=== PATIENT | male | born 1980 | race Caucasian/White ===

== ENCOUNTER 2018-01-21 02:34 | Observation (INO) ==
[2018-01-21] MEDS ORDERED: Ipratropium/Albuterol Neb 3 ML IH ONE ×2 (02:48→04:29)
[2018-01-21] MEDS ORDERED: methylPREDNISolone 125 MG/2 ML VIAL IVP ONE (02:48)
[2018-01-21] MEDS ORDERED: MethylPREDNISolone 40 MG/ML VIAL IVP ONE ×2 (02:55→05:49)
--- NOTE | 2018-01-21 03:06 | Emergency Department Note ---
Disposition Clinical Impression: Asthma with exacerbation Qualifiers: Asthma severity: unspecified severity Asthma persistence: unspecified Qualified Code(s): J45.901 - Unspecified asthma with (acute) exacerbation Disposition: Admitted As Inpatient Condition: Good Referrals: NONE,PCP [Primary Care Provider] - Forms: ED Satisfaction Letter Time of Disposition: 06:19 SOB HPI - General Chief Complaint: ED Shortness of Breath/Dyspnea Stated Complaint: RAYMON Time Seen by Provider: 01/21/18 02:42 Source: patient Nursing Notes Reviewed: Yes Vital Signs Reviewed: Yes - History of Present Illness Pt Subjective Complaint: shortness of breath Onset (ago): hour(s) Context: recent illness (last week cold) Severity: moderate Consistency/Duration: gradually worsening Improves with: bronchodilators Worsens with: nothing Known history of: asthma Associated symptoms: Reports: wheezing. Denies: chest pain, pain with inspiration, fever, cough, sputum production, orthopnea, lower extremity pain, diaphoresis, nausea/vomiting Treatment prior to arrival: bronchodilator Cough present: No - Related Data Previous Rx's Medication Instructions Recorded Ipratropium [Atrovent Inhaler] 1 puff IH QID PRN #1 inh 06/12/16 Ipratropium Neb [Atrovent Neb] 0.5 mg IH Q6HR #40 vial.neb 07/09/16 Benzonatate [Tessalon] 100 mg PO TID PRN #14 capsule 08/06/17 Albuterol Neb [Proventil Neb] 2.5 mg IH Q4HR PRN #25 vial.neb 08/23/17 Albuterol Sulfate [Albuterol 2 puff IH Q4HR PRN #1 hfa.aer.ad 08/23/17 Inhaler] Montelukast [Singulair] 10 mg PO DAILY #30 tablet 08/23/17 predniSONE [Prednisone] 50 mg PO DAILY #5 tablet 08/23/17 predniSONE [PredniSONE] 60 mg PO DAILY 5 Days tablet 09/07/17 Albuterol Sulfate [Ventolin Hfa] 18 gm IH Q4H PRN #1 hfa.aer.ad 10/03/17 Allergies Allergy/AdvReac Type Severity Reaction Status Date / Time Penicillins Allergy Hives Verified 07/10/17 14:21 Sulfa (Sulfonamide Allergy Wheezing Verified 07/10/17 14:21 Antibiotics) All systems ED: reviewed and negative except as stated. Review of Systems: As Per HPI Constitutional: Denies: fever, chills, weakness Eyes: Denies: vision change ENT ED: Denies: throat pain Cardiovascular: Denies: chest pain, palpitations Respiratory: Reports: as per HPI, wheezes. Denies: cough, dyspnea Gastrointestinal: Denies: abdominal pain, nausea, vomiting Genitourinary: Denies: dysuria Musculoskeletal: Denies: back pain Integumentary: Denies: rash Neurological: Denies: headache Psychiatric: Denies: anxiety, depression Endocrine: Denies: fatigue Hematological/Lymphatic: Denies: easy bleeding, easy bruising Allergic/Immunologic: Denies: facial swelling Past Medical History - Past Medical History Medical history: Reports: asthma, hypertension Surgical history: Reports: other (History of testicular surgery status post trauma) Psychiatric history: Reports: no psych history - Social History Smoking Status: Never smoker Smokeless Tobacco Status: No Alcohol use: Reports: none Drug use: Reports: none Physical Exam - General Limitations: no limitations General appearance: alert, in no apparent distress - Head Head exam: atraumatic, normocephalic - Eye Eye exam: Present: normal appearance, EOMI. Absent: conjunctival injection - ENT ENT exam: normal exam, normal oropharynx, mucous membranes moist - Neck Neck exam: Present: normal inspection, full ROM - Chest Chest inspection: Present: normal inspection, symmetric chest wall rise - Respiratory Respiratory exam: Present: normal lung sounds bilaterally, wheezes. Absent: respiratory distress, stridor, accessory muscle use - Cardiovascular Cardiovascular exam: Present: regular rate, normal rhythm - Abdominal Exam Abdominal exam: Present: soft, Non-Tender - Extremities Exam Extremities exam: Present: normal inspection, full ROM, normal capillary refill. Absent: pedal edema - Back Exam Back exam: Present: full ROM - Neurological Exam Neurological exam: Present: alert - Psychiatric Psychiatric exam: Present: normal affect, normal mood - Skin Skin exam: Present: warm, dry, intact, normal color. Absent: rash, cyanosis, diaphoresis Course Course Narrative: 37-year-old male with known history of asthma who arrives to exam room by private vehicle from home with complaint of worsening dyspnea. He does mention asthma, has utilized reading treatments at home, and rescue inhalers. Initially it helped but has worsened over the course of the day. He mentions he had a cold last week otherwise denies any recent illness. Denies any allergens, recent exposures, or excessive heat or have the surgery or conditions. Patient mentions he was hospitalized overnight one month ago for asthma exacerbation Trixie. He mentions previous admission in the past as well. Denies any need for intubation. Patient seen and examined. alert does not look toxic. In no acute distress. no cyanosis. No conversational dyspnea. No diaphoresis. Bilateral wheezing. 93% on room air. Steroids, DuoNeb's ordered. Magnesium ordered. Chest x-ray ordered. - Reevaluation(s) Reevaluation #1: Normal EKG. Chest x-ray unremarkable. Patient received Solu-Medrol, and 2 DuoNeb's [id number]. He is in currently running at this point, but patient's IV fluid nursing is currently changing it. Patient does feel some relief. He appears more comfortable. Lungs continued to wheeze. 95% on RA Time: 04:00 Reevaluation #2: Patient appears more comfortable after albuterol, but remains hypoxic when switched room air. Dyspnea worsens with conversation. Patient was discussed with Dr. Martinez who also had face time with patient, and agreed for decision to admit, and also advised for continuous albuterol treatments, but advised no need for epinephrine at this time. Hospitalist paged. Time: 05:48 Reevaluation #3: Patient discussed with hospitalist Dr. Snyder, who agreed to accept patient and also requested normal saline fluids. At this time patient is receiving continuos albuterol by respiratory. It is the end of my shift. I have discussed patient with day shift provider Rachle Davies CNP. Pt has been accepted by hospitalist, and I anticipate patient will be transferred to inpatient bed. However please see her documentation for any additional details, treatments, or changes in patient's plan. Time: 06:18 Vital Signs Temperature 98.1 F 01/21/18 02:36 Pulse Rate 92 01/21/18 02:36 Respiratory Rate 24 01/21/18 02:36 Blood Pressure 186/106 01/21/18 02:36 O2 Sat by Pulse Oximetry 93 01/21/18 02:36 Temperature 98.1 F 01/21/18 02:36 Pulse Rate 73 01/21/18 05:08 Respiratory Rate 20 01/21/18 05:58 Blood Pressure 131/72 01/21/18 05:08 O2 Sat by Pulse Oximetry 93 01/21/18 05:58 Oxygen Delivery Oxygen Delivery Nasal Cannula Shortness of Breath/Dyspnea - MDM Narrative Medical decision making narrative: Patient was discussed with attending Dr. Martinez, who also had face time with patient agreed with workup and disposition.. Chest X-Ray 01/21/18 02:48 IMPRESSION: Limited but grossly negative portable chest. D/ / Nicolás Rivera MD / Nicolás Rivera MD Interpreting Provider: Nicolás Rivera MD Laboratory Tests 01/21/18 01/21/18 03:25 03:25 WBC 8.1 RBC 4.30 Hgb 12.5 L Hct 38.0 MCV 88.4 MCH 29.1 MCHC 32.9 RDW 13.9 Plt Count 224 MPV 10.4 Immature Gran % 0.1 Seg Neutrophils % 68.1 Lymphocytes % 23.3 Monocytes % 4.7 Eosinophils % 3.2 Basophils % 0.6 Neutrophils # 5.5 Lymphocytes # 1.9 Monocytes # 0.4 Eosinophils # 0.3 Basophils # 0.1 Sodium 140 Potassium 3.9 Chloride 107 Carbon Dioxide 27 BUN 17 Creatinine 0.96 Est GFR ( Amer) > 60 Est GFR (Non-Af Amer) > 60 BUN/Creatinine Ratio 18 Glucose 94 Calculated Osmolality 291 Calcium 9.1 - Lab Data Lab results reviewed: Yes I reviewed the patient's lab results. Result diagrams: 01/21/18 03:25 01/21/18 03:25 Lab Results 01/21/18 01/21/18 Range/Units 03:25 03:25 WBC 8.1 (4.3-11.1) K/mcL RBC 4.30 (4.19-5.50) M/mcL Hgb 12.5 L (12.9-16.9) g/dL Hct 38.0 (37.5-50.1) % MCV 88.4 (83.0-100.0) fL MCH 29.1 (28.0-33.3) pg MCHC 32.9 (31.6-35.5) g/dL RDW 13.9 (11.5-14.5) % Plt Count 224 (140-400) K/mcL MPV 10.4 (9.4-12.4) fL Immature Gran % 0.1 (0-4) % Seg Neutrophils % 68.1 % Lymphocytes % 23.3 % Monocytes % 4.7 % Eosinophils % 3.2 % Basophils % 0.6 % Neutrophils # 5.5 (1.6-8.9) K/mcL Lymphocytes # 1.9 (0.6-4.6) K/mcL Monocytes # 0.4 (0.0-1.3) K/mcL Eosinophils # 0.3 (0.0-0.6) K/mcL Basophils # 0.1 (0.0-0.2) K/mcL Sodium 140 (136-145) mEq/L Potassium 3.9 (3.5-5.1) mEq/L Chloride 107 (98-107) mEq/L Carbon Dioxide 27 (23-29) mEq/L BUN 17 (6-20) mg/dL Creatinine 0.96 (0.70-1.30) mg/dL Est GFR ( Amer) > 60 (> 60) Est GFR (Non-Af Amer) > 60 (> 60) BUN/Creatinine Ratio 18 (6-26) Glucose 94 (70-105) mg/dL Calculated Osmolality 291 (280-300) Calcium 9.1 (8.6-10.3) mg/dL - Radiology Data Radiology results reviewed: Yes I reviewed the patient's radiology results. - EKG Data EKG attestation: Yes I reviewed and interpreted this EKG. EKG shows normal: Reports: sinus rhythm Rate: Reports: normal Interpretation: Reports: normal EKG
[2018-01-21] MEDS ORDERED: Albuterol 2.5 MG/3 ML NEBULIZER IH ONE (05:45)
--- NOTE | 2018-01-21 06:00 | Emergency Department Note ---
Disposition Clinical Impression: Asthma with exacerbation Disposition: Admitted As Inpatient Condition: Good General Adult HPI - General Chief complaint: ED Shortness of Breath/Dyspnea Stated complaint: RAYMON Time Seen by Provider: 01/21/18 02:42 Source: patient Limitations: no limitations Nursing Notes Reviewed: Yes Vital Signs Reviewed: Yes - History of Present Illness Pain Scale: 0 - Related Data Previous Rx's Medication Instructions Recorded Ipratropium [Atrovent Inhaler] 1 puff IH QID PRN #1 inh 06/12/16 Ipratropium Neb [Atrovent Neb] 0.5 mg IH Q6HR #40 vial.neb 07/09/16 Benzonatate [Tessalon] 100 mg PO TID PRN #14 capsule 08/06/17 Albuterol Neb [Proventil Neb] 2.5 mg IH Q4HR PRN #25 vial.neb 08/23/17 Albuterol Sulfate [Albuterol 2 puff IH Q4HR PRN #1 hfa.aer.ad 08/23/17 Inhaler] Montelukast [Singulair] 10 mg PO DAILY #30 tablet 08/23/17 predniSONE [Prednisone] 50 mg PO DAILY #5 tablet 08/23/17 predniSONE [PredniSONE] 60 mg PO DAILY 5 Days tablet 09/07/17 Albuterol Sulfate [Ventolin Hfa] 18 gm IH Q4H PRN #1 hfa.aer.ad 10/03/17 Allergies Allergy/AdvReac Type Severity Reaction Status Date / Time Penicillins Allergy Hives Verified 07/10/17 14:21 Sulfa (Sulfonamide Allergy Wheezing Verified 07/10/17 14:21 Antibiotics) Constitutional: Denies: fever, chills, weakness Eyes: Denies: vision change ENT ED: Denies: throat pain Cardiovascular: Denies: chest pain, palpitations Respiratory: Reports: as per HPI, wheezes. Denies: cough, dyspnea Gastrointestinal: Denies: abdominal pain, nausea, vomiting Genitourinary: Denies: dysuria Musculoskeletal: Denies: back pain Integumentary: Denies: rash Neurological: Denies: headache Psychiatric: Denies: anxiety, depression Endocrine: Denies: fatigue Hematological/Lymphatic: Denies: easy bleeding, easy bruising Allergic/Immunologic: Denies: facial swelling Past Medical History - Past Medical History Medical history: Reports: asthma, hypertension Surgical history: Reports: other (History of testicular surgery status post trauma) Psychiatric history: Reports: no psych history - Social History Smoking Status: Never smoker Smokeless Tobacco Status: No Alcohol use: Reports: none Drug use: Reports: none Physical Exam - General Limitations: no limitations General appearance: alert, in no apparent distress Course Vital Signs Temperature 98.1 F 01/21/18 02:36 Pulse Rate 92 01/21/18 02:36 Respiratory Rate 24 01/21/18 02:36 Blood Pressure 186/106 01/21/18 02:36 O2 Sat by Pulse Oximetry 93 01/21/18 02:36 Temperature 98.1 F 01/21/18 02:36 Pulse Rate 73 01/21/18 05:08 Respiratory Rate 20 01/21/18 05:58 Blood Pressure 131/72 01/21/18 05:08 O2 Sat by Pulse Oximetry 93 01/21/18 05:58 Oxygen Delivery Oxygen Delivery Nasal Cannula Medical Decision Making - Lab Data Result diagrams: 01/21/18 03:25 01/21/18 03:25 Lab Results 01/21/18 01/21/18 Range/Units 03:25 03:25 WBC 8.1 (4.3-11.1) K/mcL RBC 4.30 (4.19-5.50) M/mcL Hgb 12.5 L (12.9-16.9) g/dL Hct 38.0 (37.5-50.1) % MCV 88.4 (83.0-100.0) fL MCH 29.1 (28.0-33.3) pg MCHC 32.9 (31.6-35.5) g/dL RDW 13.9 (11.5-14.5) % Plt Count 224 (140-400) K/mcL MPV 10.4 (9.4-12.4) fL Immature Gran % 0.1 (0-4) % Seg Neutrophils % 68.1 % Lymphocytes % 23.3 % Monocytes % 4.7 % Eosinophils % 3.2 % Basophils % 0.6 % Neutrophils # 5.5 (1.6-8.9) K/mcL Lymphocytes # 1.9 (0.6-4.6) K/mcL Monocytes # 0.4 (0.0-1.3) K/mcL Eosinophils # 0.3 (0.0-0.6) K/mcL Basophils # 0.1 (0.0-0.2) K/mcL Sodium 140 (136-145) mEq/L Potassium 3.9 (3.5-5.1) mEq/L Chloride 107 (98-107) mEq/L Carbon Dioxide 27 (23-29) mEq/L BUN 17 (6-20) mg/dL Creatinine 0.96 (0.70-1.30) mg/dL Est GFR ( Amer) > 60 (> 60) Est GFR (Non-Af Amer) > 60 (> 60) BUN/Creatinine Ratio 18 (6-26) Glucose 94 (70-105) mg/dL Calculated Osmolality 291 (280-300) Calcium 9.1 (8.6-10.3) mg/dL Attestation Statement - Attestation Attestation: I, Roshan Martinez MD, personally evaluated this patient and discussed their management with the midlevel provicer, PAC/[employer]PORATE LIBRARIAN. I reviewed the midlevel provider 's note and agree with the documented findings, medical decision making, and plan of care. 37-year-old male with history of asthma presents to the emergency department with a complaint of wheezing and shortness of breath and chest tightness for 1 day prior to arrival. No fever. Some nonproductive cough. Patient uses albuterol nebulizers at home and states that yesterday he used it about every 2 hours with no relief. He is not on home oxygen. He was admitted about a month ago and another facility for similar symptoms. On examination patient is a well-developed obese male in mild respiratory distress. He is alert and oriented 3. There is no cyanosis or diaphoresis. Breath sounds are decreased bilaterally with tight diffuse bilateral inspiratory and expiratory wheezes. Heart regular. Abdomen soft and nontender with normal bowel sounds. No acute abnormality on chest x-ray. Patient received 3 DuoNeb treatments and IV Solu-Medrol. After treatment he felt only minimally better. He continues to have inspiratory and expiratory wheezes and his oxygen saturation drops to 90% while lying on the stretcher at rest when the supplemental oxygen is turned off. An hour-long albuterol treatment ordered and we will consult the hospitalist for admission. The hospitalist, Dr. Snyder, was consulted and accepted admission of the patient.
[2018-01-21 06:07] LABS: Basophils # 0.1 K/mcL (0.0-0.2); Basophils % 0.6 %; Eosinophils # 0.3 K/mcL (0.0-0.6); Eosinophils % 3.2 %; Hemoglobin 12.5 g/dL (12.9-16.9); Immature Granulocytes % 0.1 % (0-4); Lymphocytes # 1.9 K/mcL (0.6-4.6); Lymphocytes % 23.3 %; Mean Corpuscular HGB Conc 32.9 g/dL (31.6-35.5); Mean Corpuscular Hemoglobin 29.1 pg (28.0-33.3); Mean Corpuscular Volume 88.4 fL (83.0-100.0); Mean Platelet Volume 10.4 fL (9.4-12.4); Monocytes # 0.4 K/mcL (0.0-1.3); Monocytes % 4.7 %; Neutrophils # 5.5 K/mcL (1.6-8.9); Platelet Count 224 K/mcL (140-400); Red Cell Distribution Width 13.9 % (11.5-14.5); Segmented Neutrophils % 68.1 %
[2018-01-21 06:17] LABS: BUN/Creatinine Ratio 18 (6-26); Blood Urea Nitrogen 17 mg/dL (6-20); Calcium 9.1 mg/dL (8.6-10.3); Carbon Dioxide 27 mEq/L (23-29); Chloride 107 mEq/L (98-107); Glucose 94 mg/dL (70-105); Osmolality,Calculated 291 (280-300); Potassium 3.9 mEq/L (3.5-5.1); Sodium 140 mEq/L (136-145); eGFR For African Americans > 60 (> 60); eGFR For Non-African Americans > 60 (> 60)
[2018-01-21] MEDS ORDERED: 0.9 % Sodium Chloride 1,000 ML IVC SCH (06:30)
--- NOTE | 2018-01-21 10:35 | Internal Med History&Physical ---
Date of Encounter: 01/21/18 Time of Encounter: 08:00 Internal Medicine - H&P: HPI Chief complaint: Shortness of breath/wheezing Admitted From: Home Plans for Post Hospital Care: Home History of present illness: Patient is a 37-year-old male with past medical history significant for asthma and obesity who presents to the ER on 01/21/18 due to shortness of breath and wheezing. Patient reports of waking up the morning of 01/20/18 with chest tightness, shortness of breath, wheezing and nonproductive cough. Patient decided to go to work but at the end of his shift, his dyspnea on exertion worsened so he decided to come to the ER for evaluation. Of note, he reports of at least 3 admissions for asthma exacerbation in the last year and denies ever being intubated. In the ER, lab work unremarkable and patient with good O2 sats on room air. Patient was given Solu-Medrol, magnesium sulfate and dual nebs in the ER. Patient admitted to the medical surgical floor for asthma exacerbation. Past Med Surg Social Fam HX - Past Medical History Medical history: asthma, hypertension Psychiatric history: no psych history - Past Surgical History Surgical History: other - Social History Smoking Status: Never smoker Smokeless Tobacco Status: No Alcohol use: none Drug use: none - Family History Mother Living Status: Still Living Hx Family Cardiac Disorders: Yes (11 stents, CABG) Hx Family Respiratory Disorders: No Hx Family Cancer: No Hx Family GI Disorders: No Hx Family Endocrine Disorder: Yes (Diabetes) Hx Family Neuromuscular Disorders: No Hx Family Neurologic Disorders: No Hx Family HEENT Disorders: No Hx Family Autoimmune Disorders: No Father Living Status: Hx Family Cardiac Disorders: Yes (Cardiomegaly, stents) Hx Family Respiratory Disorders: Yes (COPD, emphysema) Hx Family Cancer: No Hx Family GI Disorders: No Hx Family Endocrine Disorder: Yes (Diabetes) Hx Family Neuromuscular Disorders: No Hx Family Neurologic Disorders: No Hx Family HEENT Disorders: No Hx Family Autoimmune Disorders: No Internal Medicine - H&P: Meds Montelukast [Singulair] 10 mg PO DAILY #30 tablet 08/23/17 [Rx] Albuterol Sulfate [Ventolin Hfa] 2 puff IH Q4H PRN 01/21/18 [History] Budesonide/Formoterol 80/4.5 [Symbicort 80/4.5] 2 puff IH BIDR 01/21/18 [ History] 3 Allergy/AdvReac Type Severity Reaction Status Date / Time Penicillins Allergy Hives Verified 01/21/18 11:05 Sulfa (Sulfonamide Allergy Wheezing Verified 01/21/18 11:05 Antibiotics) All Systems PM: A 10-system review of systems was performed and is negative for pertinent findings except as documented above in the HPI. - Constitutional Vitals: Temp Pulse Resp BP Pulse Ox 98.0 F 82 18 153/84 93 01/21/18 06:53 01/21/18 06:53 01/21/18 06:53 01/21/18 06:53 01/21/18 06:53 General appearance: Present: A&O X 3, no acute distress - Eye Eye exam: Present: normal appearance - ENT ENT exam: Present: mucous membranes moist - Respiratory Respiratory exam: Present: CTAB. Absent: accessory muscle use, rales, rhonchi, wheezes - Cardiovascular Cardiovascular exam: Present: RRR, +S1, +S2. Absent: diastolic murmur, gallop, rubs, systolic murmur - GI/Abdominal GI/Abdominal exam: Present: normal bowel sounds, soft, no peritoneal signs. Absent: distended, tenderness - Extremities Exam Extremities exam: Absent: pedal edema - Neurological Exam Neurological exam: Present: oriented X3 - Psychiatric Psychiatric exam: Present: normal mood - Skin Skin exam: Present: normal color Internal Med - H&P Results - Labs CBC & Chem 7: 01/21/18 03:25 01/21/18 03:25 - Assessment and plan (1) Asthma with exacerbation Current Visit: Yes Status: Acute Assessment and plan: On examination patient not in any respiratory distress on room air Will continue IV Solu-Medrol and DuoNeb's Qualifiers: Asthma severity: unspecified severity Asthma persistence: unspecified Qualified Code(s): J45.901 - Unspecified asthma with (acute) exacerbation (2) BHARATI (obstructive sleep apnea) Current Visit: No Status: Suspected Assessment and plan: CPAP daily at bedtime (3) Morbid obesity with BMI of 50.0-59.9, adult Current Visit: No Status: Chronic Assessment and plan: BMI 52 (4) DVT prophylaxis Current Visit: No Status: Acute Assessment and plan: Heparin subcutaneous - Time Spent With Patient Total time spent is greater than 50% in coordination of care (as documented) at patient's floor/unit and/or counseling patient:
[2018-01-21] MEDS ORDERED: Naloxone 0.4 MG/ML INJ IVP PRN (11:55)
--- NOTE | 2018-01-21 13:16 | Electrocardiograph Report ---
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
[2018-01-21] MEDS: Ipratropium/Albuterol Neb 3 ML IH SCH ×4 (14:23→23:21)
[2018-01-21] MEDS: methylPREDNISolone 125 MG/2 ML VIAL IVP SCH (15:38)
[2018-01-22] MEDS: methylPREDNISolone 125 MG/2 ML VIAL IVP SCH ×3 (00:08→17:18)
[2018-01-22] MEDS: Ipratropium/Albuterol Neb 3 ML IH SCH ×6 (04:33→23:47)
[2018-01-22 07:14] LABS: Basophils % 0.1 %; Hematocrit 41.8 % (37.5-50.1); Hemoglobin 13.1 g/dL (12.9-16.9); Immature Granulocytes % 0.5 % (0-4); Lymphocytes # 0.7 K/mcL (0.6-4.6); Lymphocytes % 5.1 %; Mean Corpuscular HGB Conc 31.3 g/dL (31.6-35.5); Mean Corpuscular Volume 89.3 fL (83.0-100.0); Mean Platelet Volume 10.2 fL (9.4-12.4); Monocytes # 0.1 K/mcL (0.0-1.3); Monocytes % 0.7 %; Platelet Count 251 K/mcL (140-400); Red Blood Count 4.68 M/mcL (4.19-5.50); Red Cell Distribution Width 13.7 % (11.5-14.5); Segmented Neutrophils % 93.6 %
[2018-01-22 07:16] LABS: Neutrophils # 12.2 K/mcL (1.6-8.9)
[2018-01-22 07:38] LABS: BUN/Creatinine Ratio 21 (6-26); Blood Urea Nitrogen 16 mg/dL (6-20); Calcium 9.5 mg/dL (8.6-10.3); Carbon Dioxide 24 mEq/L (23-29); Chloride 106 mEq/L (98-107); Glucose 160 mg/dL (70-105); Osmolality,Calculated 293 (280-300); Potassium 4.7 mEq/L (3.5-5.1); Sodium 139 mEq/L (136-145); eGFR For African Americans > 60 (> 60); eGFR For Non-African Americans > 60 (> 60)
--- NOTE | 2018-01-22 13:58 | Internal Med Progress Note ---
Date of Encounter: 01/22/18 Time of Encounter: 13:56 - Assessment and plan (1) Asthma with exacerbation Current Visit: Yes Status: Acute Assessment and plan: has known hx of asthma. Symptomatic with worsening shortness of breath and wheezing. Symptoms improving with steroids and bronchodilators. Qualifiers: Asthma severity: unspecified severity Asthma persistence: unspecified Qualified Code(s): J45.901 - Unspecified asthma with (acute) exacerbation (2) Leukocytosis Current Visit: Yes Status: Acute Assessment and plan: WBC 13K. secondary to steroids. Afebrile, no tachycardia or hypotension. Hold on ATB. Qualifiers: Leukocytosis type: bandemia Qualified Code(s): D72.825 - Bandemia (3) Morbid obesity with BMI of 50.0-59.9, adult Current Visit: No Status: Chronic Assessment and plan: BMI 52 (4) BHARATI (obstructive sleep apnea) Current Visit: No Status: Suspected Assessment and plan: CPAP daily at bedtime (5) DVT prophylaxis Current Visit: No Status: Acute Assessment and plan: Heparin - Time Spent With Patient Total time spent is greater than 50% in coordination of care (as documented) at patient's floor/unit and/or counseling patient: - Subjective Interval history: Seen and examined at bedside; patient is new to me. Information obtained fro chart review and patent report. Still with SOB but overall improved. Denies chest pain. He is agreeable to stay overnight for IV steroids - Constitutional Vitals: Temp Pulse Resp BP Pulse Ox 97.7 F 83 16 135/75 96 01/22/18 10:46 01/22/18 10:46 01/22/18 11:08 01/22/18 10:46 01/22/18 11:08 General appearance: Present: A&O X 3, morbidly obese, no acute distress - Head Head exam: Present: atraumatic, normocephalic - Eye Eye exam: Present: PERRL, conjuntiva pink, sclera anicteric Pupils: Present: PERRL - Neck Neck exam general surgery: Present: supple, trachea midline. Absent: lymphadenopathy - Respiratory Respiratory exam: Present: CTAB, wheezes. Absent: accessory muscle use, rales, rhonchi - Cardiovascular Cardiovascular exam: Present: RRR, +S1, +S2. Absent: diastolic murmur, gallop, rubs, systolic murmur - GI/Abdominal GI/Abdominal exam: Present: normal bowel sounds, soft, no peritoneal signs. Absent: distended, tenderness - Extremities Exam Extremities exam: Present: warm, radial pulses palpable and symmetrical. Absent : calf tenderness, cyanotic, pedal edema - Neurological Exam Neurological exam: Present: CN II-XII intact, oriented X3, no focal deficits. Absent: pronater drift, facial droop, speech deficit - Skin Skin exam: Present: dry, intact Internal Medicine: Result - Labs CBC & Chem 7: 01/22/18 06:00 01/22/18 06:00 Labs: Short CBC 01/22/18 Range/Units 06:00 WBC 13.0 H D (4.3-11.1) K/mcL Hgb 13.1 (12.9-16.9) g/dL Hct 41.8 (37.5-50.1) % Plt Count 251 (140-400) K/mcL Neutrophils # 12.2 H (1.6-8.9) K/mcL BMP 01/22/18 06:00 Sodium 139 Potassium 4.7 Chloride 106 Carbon Dioxide 24 BUN 16 Creatinine 0.75 Glucose 160 H Calcium 9.5 Consult Discharge Plan - Plan Referrals: NONE,PCP [Primary Care Provider] -
[2018-01-22 21:21] LABS: Adenovirus Not Detected (Not Detect); Bordetella Pertussis Not Detected (Not Detect); Chlamydophila pneumoniae ***DETECTED*** (Not Detect); Coronavirus 229E Not Detected (Not Detect); Coronavirus HKU1 Not Detected (Not Detect); Coronavirus NL63 Not Detected (Not Detect); Coronavirus OC43 Not Detected (Not Detect); Human Metapneumovirus Not Detected (Not Detect); Human Rhinovirus/Enterovirus Not Detected (Not Detect); Influenza A Subtype 2009 H1 Not Detected (Not Detect); Influenza A Untypeable Not Detected (Not Detect); Influenza B Not Detected (Not Detect); Mycoplasma pneumoniae Not Detected (Not Detect); Parainfluenza Virus 1 Not Detected (Not Detect); Parainfluenza Virus 2 Not Detected (Not Detect); Parainfluenza Virus 3 Not Detected (Not Detect); Parainfluenza Virus 4 Not Detected (Not Detect); Respiratory Syncytial Virus Not Detected (Not Detect)
[2018-01-23] MEDS: methylPREDNISolone 125 MG/2 ML VIAL IVP SCH ×2 (00:12→08:11)
[2018-01-23] MEDS: Ipratropium/Albuterol Neb 3 ML IH SCH ×5 (04:50→20:58)
[2018-01-23 07:14] LABS: Hematocrit 41.4 % (37.5-50.1); Hemoglobin 13.1 g/dL (12.9-16.9); Mean Corpuscular HGB Conc 31.6 g/dL (31.6-35.5); Mean Corpuscular Volume 88.5 fL (83.0-100.0); Platelet Count 270 K/mcL (140-400); Red Blood Count 4.68 M/mcL (4.19-5.50); Red Cell Distribution Width 14.1 % (11.5-14.5)
[2018-01-23 07:32] LABS: BUN/Creatinine Ratio 29 (6-26); Blood Urea Nitrogen 23 mg/dL (6-20); Calcium 9.5 mg/dL (8.6-10.3); Carbon Dioxide 24 mEq/L (23-29); Chloride 110 mEq/L (98-107); Glucose 140 mg/dL (70-105); Osmolality,Calculated 302 (280-300); Potassium 4.9 mEq/L (3.5-5.1); Sodium 143 mEq/L (136-145); eGFR For African Americans > 60 (> 60); eGFR For Non-African Americans > 60 (> 60)
--- NOTE | 2018-01-23 12:41 | Internal Med Progress Note ---
Date of Encounter: 01/23/18 Time of Encounter: 12:39 - Assessment and plan (1) Asthma with exacerbation Current Visit: Yes Status: Acute Assessment and plan: has known hx of asthma. Symptomatic with worsening shortness of breath and wheezing. Urianry antigens negative. Resp PCR with seed pneumonia. Symptoms improving with steroids and bronchodilators. Add azithromycin to cover for possible bacterial component. Qualifiers: Asthma severity: unspecified severity Asthma persistence: unspecified Qualified Code(s): J45.901 - Unspecified asthma with (acute) exacerbation (2) Leukocytosis Current Visit: Yes Status: Acute Assessment and plan: WBC 16K. Afebrile, no tachycardia or hypotension. Suspect secondary to steroids however WBC elevated from the day before. Start azithromycin as noted above. Blood cultures and lactic acid pending. Qualifiers: Leukocytosis type: bandemia Qualified Code(s): D72.825 - Bandemia (3) Morbid obesity with BMI of 50.0-59.9, adult Current Visit: No Status: Chronic Assessment and plan: BMI 52; lifestyle modifications encouraged. (4) BHARATI (obstructive sleep apnea) Current Visit: No Status: Suspected Assessment and plan: CPAP daily at bedtime (5) DVT prophylaxis Current Visit: No Status: Acute Assessment and plan: Heparin - Time Spent With Patient Total time spent is greater than 50% in coordination of care (as documented) at patient's floor/unit and/or counseling patient: - Subjective Interval history: Seen and examined at bedside; says he feels better today but still having some shortness of breath. Does not feel he is getting as when it is yesterday. Still has nonproductive cough. Has a little wheezing. No chest pain. - Constitutional Vitals: Temp Pulse Resp BP Pulse Ox 98.1 F 87 14 130/67 92 01/23/18 11:37 01/23/18 11:37 01/23/18 11:37 01/23/18 11:37 01/23/18 11:37 General appearance: Present: A&O X 3, morbidly obese, no acute distress - Head Head exam: Present: atraumatic, normocephalic - Eye Eye exam: Present: PERRL, conjuntiva pink, sclera anicteric Pupils: Present: PERRL - Neck Neck exam general surgery: Present: supple, trachea midline. Absent: lymphadenopathy - Respiratory Respiratory exam: Present: CTAB, wheezes (Mild, scattered wheezing.). Absent: accessory muscle use, rales, rhonchi - Cardiovascular Cardiovascular exam: Present: RRR, +S1, +S2. Absent: diastolic murmur, gallop, rubs, systolic murmur - GI/Abdominal GI/Abdominal exam: Present: normal bowel sounds, soft, no peritoneal signs. Absent: distended, tenderness - Extremities Exam Extremities exam: Present: warm, radial pulses palpable and symmetrical. Absent : calf tenderness, cyanotic, pedal edema - Neurological Exam Neurological exam: Present: CN II-XII intact, oriented X3, no focal deficits. Absent: pronater drift, facial droop, speech deficit - Skin Skin exam: Present: dry, intact Internal Medicine: Result - Labs CBC & Chem 7: 01/23/18 06:44 01/23/18 06:44 Labs: Short CBC 01/23/18 Range/Units 06:44 WBC 16.1 H (4.3-11.1) K/mcL Hgb 13.1 (12.9-16.9) g/dL Hct 41.4 (37.5-50.1) % Plt Count 270 (140-400) K/mcL BMP 01/23/18 06:44 Sodium 143 Potassium 4.9 Chloride 110 H Carbon Dioxide 24 BUN 23 H Creatinine 0.78 Glucose 140 H Calcium 9.5 - Impressions Impressions Chest CT 01/22/18 14:04 IMPRESSION: 1. No acute abnormality within the chest. D/ / Rajiv Kincaid MD / Rajiv Kincaid MD Interpreting Provider: Rajiv Kincaid MD Consult Discharge Plan - Plan Referrals: NONE,PCP [Primary Care Provider] -
[2018-01-23] MEDS: Azithromycin 500 MG in D5% in Water 250 ML IVPB SCH (13:12)
[2018-01-24] MEDS: Ipratropium/Albuterol Neb 3 ML IH SCH ×3 (00:53→07:55)
[2018-01-24 05:01] LABS: BUN/Creatinine Ratio 34 (6-26); Blood Urea Nitrogen 29 mg/dL (6-20); Calcium 8.8 mg/dL (8.6-10.3); Carbon Dioxide 25 mEq/L (23-29); Chloride 106 mEq/L (98-107); Glucose 108 mg/dL (70-105); Osmolality,Calculated 290 (280-300); Potassium 4.4 mEq/L (3.5-5.1); Sodium 137 mEq/L (136-145); eGFR For African Americans > 60 (> 60); eGFR For Non-African Americans > 60 (> 60)
[2018-01-24 06:39] VITALS: BP 101/64
[2018-01-24 07:53] LABS: Hematocrit 39.3 % (37.5-50.1); Hemoglobin 12.5 g/dL (12.9-16.9); Mean Corpuscular HGB Conc 31.8 g/dL (31.6-35.5); Mean Corpuscular Hemoglobin 28.2 pg (28.0-33.3); Mean Corpuscular Volume 88.5 fL (83.0-100.0); Mean Platelet Volume 10.7 fL (9.4-12.4); Platelet Count 218 K/mcL (140-400); Red Blood Count 4.44 M/mcL (4.19-5.50)
[2018-01-24] MEDS ORDERED: predniSONE 20 MG TABLET PO SCH (09:00)
--- NOTE | 2018-01-24 10:03 | Discharge Summary ---
Orders not resulted at time of discharge: Pending orders 01/23/18 12:56 Culture,Blood [BC] Stat 01/25/18 04:00 BMP [Basic Metabolic Panel] AM 0400 Complete Blood Count w/o Diff [HEME] AM 0400 01/26/18 04:00 BMP [Basic Metabolic Panel] AM 0400 Complete Blood Count w/o Diff [HEME] AM 0400 01/27/18 04:00 BMP [Basic Metabolic Panel] AM 0400 Complete Blood Count w/o Diff [HEME] AM 0400 Date of Encounter: 01/24/18 Time of Encounter: 10:03 - Discharge Diagnosis (1) Asthma with exacerbation Priority: Primary Status: Acute Assessment and Plan: has known hx of asthma. Symptomatic with worsening shortness of breath and wheezing. CXR and chest CT nonacute. Urianry antigens negative. Resp PCR with chlamydophila pneumoniae. Symptoms significantly improved with IV azithromycin, steroids and bronchodilators. Discharge home on oral azithromycin, steroid burst. Continue home inhalers. Recommend follow-up with PCP within 7-10 days and also recommend establishing care with [facility] web developer. Qualifiers: Asthma severity: unspecified severity Asthma persistence: unspecified Qualified Code(s): J45.901 - Unspecified asthma with (acute) exacerbation (2) Leukocytosis Priority: Primary Status: Acute Assessment and Plan: WBC 16K. Afebrile, no tachycardia or hypotension. Suspect multifactorial with asthma exacerbation and steroid-induced. WBC 11 K at discharge. 01/23/18 blood cultures NGTD Qualifiers: Leukocytosis type: bandemia Qualified Code(s): D72.825 - Bandemia (3) Morbid obesity with BMI of 50.0-59.9, adult Priority: Secondary Status: Chronic Assessment and Plan: BMI 52; lifestyle modifications/weight loss encouraged. (4) BHARATI (obstructive sleep apnea) Priority: Secondary Status: Suspected Assessment and Plan: per hx. Cont CPAP. Lifestyle modifications/weight loss encouraged Hospital course: Please see assessment and plan for hospital course Discharge discussed with: patient (Seen and examined at bedside. Patient says he feels significantly better and would like to discharge home today. Has a dry , nonproductive cough at times and shortness of breath with exertion but overall improved. No wheezing. Denied chest pain. Strongly encourage dietary and lifestyle modifications to encourage weight loss. Also recommend follow-up with PCP within 7-10 days and establishing care with [facility] web developer.) - Time Spent with Patient Total time spent providing and/or coordinating discharge services: - Discharge Medications Prescriptions: Azithromycin 250 mg PO DAILY #3 tablet Budesonide/Formoterol 80/4.5 [Symbicort 80/4.5] 2 puff IH BIDR #1 inhaler predniSONE [PredniSONE] 40 mg PO DAILY #8 tablet Home Medications: Montelukast [Singulair] 10 mg PO DAILY #30 tablet 08/23/17 [Rx] Albuterol Sulfate [Ventolin Hfa] 2 puff IH Q4H PRN 01/21/18 [History] Azithromycin 250 mg PO DAILY #3 tablet 01/24/18 [Rx] Budesonide/Formoterol 80/4.5 [Symbicort 80/4.5] 2 puff IH BIDR #1 inhaler 01/24 [Rx] predniSONE [PredniSONE] 40 mg PO DAILY #8 tablet 01/24/18 [Rx] Allergies/Adverse Reactions: 3 Allergy/AdvReac Type Severity Reaction Status Date / Time Penicillins Allergy Hives Verified 01/21/18 11:05 Sulfa (Sulfonamide Allergy Wheezing Verified 01/21/18 11:05 Antibiotics) Date of admission: 01/21/18 06:21 Primary care physician: PCP NONE Consults: 01/22/18 08:30 Consult to [facility] [CONS] Routine Reason for SW Consult: Questions about financial assistance for prescriptions. Discharging clinician: Felicita Aaron Anticipated date of discharge: 01/24/18 - Constitutional Vitals: Temp Pulse Resp BP Pulse Ox 98.1 F 73 14 101/64 97 01/24/18 06:38 01/24/18 06:38 01/24/18 06:38 01/24/18 06:38 01/24/18 06:38 General appearance: Present: A&O X 3, morbidly obese, no acute distress - Head Head exam: Present: atraumatic, normocephalic - Eye Eye exam: Present: PERRL, conjuntiva pink, sclera anicteric Pupils: Present: PERRL - Neck Neck exam general surgery: Present: supple, trachea midline. Absent: lymphadenopathy - Respiratory Respiratory exam: Present: CTAB. Absent: accessory muscle use, rales, rhonchi, wheezes - Cardiovascular Cardiovascular exam: Present: RRR, +S1, +S2. Absent: diastolic murmur, gallop, rubs, systolic murmur - GI/Abdominal GI/Abdominal exam: Present: normal bowel sounds, soft, no peritoneal signs. Absent: distended, tenderness - Extremities Exam Extremities exam: Present: warm, radial pulses palpable and symmetrical. Absent : calf tenderness, cyanotic, pedal edema - Neurological Exam Neurological exam: Present: CN II-XII intact, oriented X3, no focal deficits. Absent: pronater drift, facial droop, speech deficit - Skin Skin exam: Present: dry, intact - Patient Status Disposition: Home, Self-Care Condition: Good Functional capacity at discharge: independent ambulation Overall status at discharge: patient is back to baseline - Discharge Instructions Instructions: Azithromycin (By mouth), Prednisone (By mouth), Sleep Apnea Syndrome (DC), Weight Management (DC) Follow Up With: NONE,PCP [Primary Care Provider] - (Please call [phone] to establish care with a primary care physician if you do not have one. If you have a primary care physician please follow-up within 7-10 days. It is recommended that he establish care with [facility] web developer and you may need referral from your PCP.) Dom Rodríguez MD [Partnered Physician] - - Diet and Activity Activity: increase activity as tolerated Diet: low fat, low cholesterol
[2018-01-24] MEDS: Azithromycin 500 MG in D5% in Water 250 ML IVPB SCH (10:24)
[2018-01-24] MEDS ORDERED: Azithromycin 250 MG TABLET PO ONE (11:01)
== END 2018-01-24 11:20 | disposition home or self-care (01) ==
LOC: 3BNU 02:34 → EMEROO 02:34 → 3BNU 06:40
PROVIDERS: ADMIT Hospitalist; ATTEND Pediatrics

== ENCOUNTER 2019-04-05 00:09 | Observation (INO) ==
[2019-04-05] MEDS ORDERED: methylPREDNISolone 125 MG/2 ML VIAL IVP ONE (00:24)
[2019-04-05] MEDS ORDERED: Ipratropium/Albuterol Neb 3 ML IH ONE (00:24)
[2019-04-05 01:00] LABS: Basophils # 0.1 K/mcL (0.0-0.2); Basophils % 0.6 %; Eosinophils # 0.3 K/mcL (0.0-0.6); Eosinophils % 3.6 %; Hematocrit 37.4 % (37.5-50.1); Hemoglobin 11.9 g/dL (12.9-16.9); Immature Granulocytes % 0.1 % (0-4); Lymphocytes # 1.1 K/mcL (0.6-4.6); Lymphocytes % 14.6 %; Mean Corpuscular HGB Conc 31.8 g/dL (31.6-35.5); Mean Corpuscular Hemoglobin 28.1 pg (28.0-33.3); Mean Corpuscular Volume 88.2 fL (83.0-100.0); Mean Platelet Volume 9.5 fL (9.4-12.4); Monocytes # 0.4 K/mcL (0.0-1.3); Neutrophils # 5.9 K/mcL (1.6-8.9); Platelet Count 195 K/mcL (140-400); Red Blood Count 4.24 M/mcL (4.19-5.50); Red Cell Distribution Width 14.7 % (11.5-14.5); Segmented Neutrophils % 76.1 %; White Blood Count 7.8 K/mcL (4.3-11.1)
[2019-04-05 01:15] LABS: BUN/Creatinine Ratio 16 (6-26); Blood Urea Nitrogen 19 mg/dL (6-20); Carbon Dioxide 29 mEq/L (23-29); Chloride 102 mEq/L (98-107); Glucose 99 mg/dL (70-105); Osmolality,Calculated 288 (280-300); Sodium 138 mEq/L (136-145); eGFR For African Americans > 60 (> 60); eGFR For Non-African Americans > 60 (> 60)
[2019-04-05] MEDS ORDERED: Levalbuterol Neb 1.25 MG/3 ML IH STA (01:52)
--- NOTE | 2019-04-05 01:57 | Emergency Department Note ---
Disposition Clinical Impression: Asthma with exacerbation Qualifiers: Asthma severity: moderate Asthma persistence: unspecified Qualified Code(s): J45.901 - Unspecified asthma with (acute) exacerbation Disposition: Admitted As Inpatient Referrals: NONE,PCP [Primary Care Provider] - Forms: ED Satisfaction Letter Time of Disposition: 03:45 SOB HPI - General Chief Complaint: ED Shortness of Breath/Dyspnea Stated Complaint: [place] Time Seen by Provider: 04/05/19 00:16 Source: patient Mode of arrival: private vehicle Limitations: no limitations Nursing Notes Reviewed: Yes Vital Signs Reviewed: Yes - History of Present Illness 39-year-old male presents emergency department for shortness of breath. Patient states he is asthmatic and today in the afternoon he had onset shortness of breath. He uses home doing nebs, inhalers, Symbicort. He does state he uses rescue inherits prior to arrival. He states that 6 weeks ago he had pneumonia, is on antibiotics in a steroid burst and which he recovered for about a week and then he is now having difficulty breathing. He states positive wheezing. No fevers, chills, chest pain, bowel pain, nausea, vomiting, station, diarrhea. Pt Subjective Complaint: "asthma attack" Onset (ago): hour(s) Context: recent illness Severity: moderate, severe Consistency/Duration: constant Improves with: bronchodilators, upright position Worsens with: exertion, movement Known history of: asthma Associated symptoms: Reports: wheezing. Denies: chest pain, pain with inspiration, fever, cough, sputum production, orthopnea, lower extremity pain, polyuria, polydipsia, parasthesias, palpitations, hemoptysis, diaphoresis, nausea/vomiting, syncope, abdominal pain, rash, sense of impending doom Treatment prior to arrival: bronchodilator Cough present: No - Related Data Home oxygen amount: none Home Medications Medication Instructions Recorded Confirmed Albuterol Sulfate [Ventolin Hfa] 2 puff IH Q4H PRN 01/21/18 04/05/19 Previous Rx's Medication Instructions Recorded Albuterol Neb [Proventil Neb] 2.5 mg IH Q4HR PRN #25 vial.neb 06/27/18 Budesonide/Formoterol 160/4.5 1 puff IH BIDR #1 hfa.[email or web address] 01/23/19 [Symbicort 160/4.5] Ipratropium/Albuterol Neb [Duoneb] 3 ml IH Q6HR PRN #25 vial.neb 01/23/19 Ipratropium/Albuterol Neb [Duoneb] 3 ml IH Q6HR PRN #25 vial.neb 02/19/19 Montelukast [Singulair] 10 mg PO DAILY #14 tablet 02/19/19 Allergies Allergy/AdvReac Type Severity Reaction Status Date / Time Penicillins Allergy Hives Verified 04/05/19 00:20 Sulfa (Sulfonamide Allergy Wheezing Verified 04/05/19 00:20 Antibiotics) All systems ED: reviewed and negative except as stated. Review of Systems: As Per HPI Constitutional: Denies: fever, chills ENT ED: Denies: ear pain, throat pain Cardiovascular: Denies: chest pain, palpitations Respiratory: Reports: wheezes. Denies: cough, hemoptysis, stridor Gastrointestinal: Denies: abdominal pain, nausea, vomiting, diarrhea Musculoskeletal: Denies: back pain, neck pain Integumentary: Denies: rash Neurological: Denies: headache Past Medical History - Past Medical History Attestation: Yes The following information was validated with the patient. Source: patient Medical history: Reports: asthma, hypertension Surgical history: Reports: other (Testicular surgery from injury) Psychiatric history: Reports: no psych history - Social History Smoking Status: Never smoker Smokeless Tobacco Status: No Alcohol use: Reports: none Drug use: Reports: none Physical Exam - General Limitations: no limitations General appearance: alert, in no apparent distress - Head Head exam: atraumatic, normocephalic, normal inspection - Eye Eye exam: Present: normal appearance - ENT ENT exam: mucous membranes moist - Neck Neck exam: Present: normal inspection, full ROM, trachea midline - Chest Chest inspection: Present: normal inspection, symmetric chest wall rise - Respiratory Respiratory exam: Present: wheezes. Absent: respiratory distress, accessory mu scle use, prolonged expiratory phase - Cardiovascular Cardiovascular exam: Present: regular rate, normal rhythm, normal heart sounds - Abdominal Exam Abdominal exam: Present: soft, Non-Tender. Absent: tenderness, distention, guarding, rebound, rigidity - Extremities Exam Extremities exam: Present: normal inspection, full ROM. Absent: tenderness, pedal edema - Neurological Exam Neurological exam: Present: alert, oriented X3 - Psychiatric Psychiatric exam: Present: normal affect, normal mood - Skin Skin exam: Present: warm, dry, intact, normal color Course Course Narrative: Obese male in no acute distress. Respirations are easy and even, there is no retractions. He does speak in full sentences without conversational dyspnea. He is noted to be slightly tachypneic upon arrival with respiratory 24, he does have audible wheezing. Temperature slightly elevated at 99.8, slightly tachycardic with a heart rate 106. He is normotensive. EKG completed upon arrival reveals a sinus tachycardia at a rate of 106 bpm. NH interval 136 ms, QTC 423 ms, there is no evidence of ischemic morphology or ectopy. Doonan's and consignment were given with patient verbalization of easy respirations, nontachypneic at this time. 0200-chest x-ray returns unremarkable, labs are benign, d-dimer 357. Patient does still continue to have wheezing, he is not hypoxic and is oxygenating well with sitting still. He does state he feels better. We will give a dose of Xopenex, continue to monitor. 0300-patient continues to rest comfortably. He is not hypoxic while sitting in bed. Patient was up ambulating unit, noted with hypoxia and patient describes shortness of breath. Patient 86-88% on room air while ambulating, becomes tachycardic at 120 bpm when ambulating. At the [facility] do feel patient would be most benefited from admission to the hospital for asthma exacerbation. He is agreeable with this plan of care and states he is unsure if he be able to take care of himself at home. We will give magnesium. 0344-spell with hospitalist Dr. Snyder, agreeable for admission to the hospital. We will transition care at this time. Vital Signs Temperature 99.8 F H 04/05/19 00:15 Pulse Rate 104 04/05/19 00:15 Respiratory Rate 24 04/05/19 00:15 Blood Pressure 137/97 04/05/19 00:15 O2 Sat by Pulse Oximetry 93 04/05/19 00:15 Temperature 99.8 F H 04/05/19 00:15 Pulse Rate 123 04/05/19 03:20 Respiratory Rate 26 04/05/19 03:20 Blood Pressure 166/94 04/05/19 03:00 O2 Sat by Pulse Oximetry 92 04/05/19 03:00 Oxygen Delivery Oxygen Delivery Room Air Shortness of Breath/Dyspnea - Lab Data Result diagrams: 04/05/19 00:43 04/05/19 00:43 Lab Results 04/05/19 04/05/19 04/05/19 Range/Units 00:43 00:43 00:43 WBC 7.8 (4.3-11.1) K/mcL RBC 4.24 (4.19-5.50) M/mcL Hgb 11.9 L (12.9-16.9) g/dL Hct 37.4 L (37.5-50.1) % MCV 88.2 (83.0-100.0) fL MCH 28.1 (28.0-33.3) pg MCHC 31.8 (31.6-35.5) g/dL RDW 14.7 H (11.5-14.5) % Plt Count 195 (140-400) K/mcL MPV 9.5 (9.4-12.4) fL Immature Gran % 0.1 (0-4) % Seg Neutrophils % 76.1 % Lymphocytes % 14.6 % Monocytes % 5.0 % Eosinophils % 3.6 % Basophils % 0.6 % Neutrophils # 5.9 (1.6-8.9) K/mcL Lymphocytes # 1.1 (0.6-4.6) K/mcL Monocytes # 0.4 (0.0-1.3) K/mcL Eosinophils # 0.3 (0.0-0.6) K/mcL Basophils # 0.1 (0.0-0.2) K/mcL D-Dimer 357 (0-500) ng/mLFEU Sodium 138 (136-145) mEq/L Potassium 4.0 (3.5-5.1) mEq/L Chloride 102 (98-107) mEq/L Carbon Dioxide 29 (23-29) mEq/L BUN 19 (6-20) mg/dL Creatinine 1.20 (0.70-1.30) mg/dL Est GFR ( Amer) > 60 (> 60) Est GFR (Non-Af Amer) > 60 (> 60) BUN/Creatinine Ratio 16 (6-26) Glucose 99 (70-105) mg/dL Calculated Osmolality 288 (280-300) Lactic Acid (0.5-2.2) mmol/L Calcium 9.0 (8.6-10.3) mg/dL Magnesium 2.0 (1.6-2.6) mg/dL Troponin I (< 0.04) ng/mL B-Natriuretic Peptide (Less than 100) pg/mL 04/05/19 04/05/19 04/05/19 Range/Units 00:43 00:43 00:43 WBC (4.3-11.1) K/mcL RBC (4.19-5.50) M/mcL Hgb (12.9-16.9) g/dL Hct (37.5-50.1) % MCV (83.0-100.0) fL MCH (28.0-33.3) pg MCHC (31.6-35.5) g/dL RDW (11.5-14.5) % Plt Count (140-400) K/mcL MPV (9.4-12.4) fL Immature Gran % (0-4) % Seg Neutrophils % % Lymphocytes % % Monocytes % % Eosinophils % % Basophils % % Neutrophils # (1.6-8.9) K/mcL Lymphocytes # (0.6-4.6) K/mcL Monocytes # (0.0-1.3) K/mcL Eosinophils # (0.0-0.6) K/mcL Basophils # (0.0-0.2) K/mcL D-Dimer (0-500) ng/mLFEU Sodium (136-145) mEq/L Potassium (3.5-5.1) mEq/L Chloride (98-107) mEq/L Carbon Dioxide (23-29) mEq/L BUN (6-20) mg/dL Creatinine (0.70-1.30) mg/dL Est GFR ( Amer) (> 60) Est GFR (Non-Af Amer) (> 60) BUN/Creatinine Ratio (6-26) Glucose (70-105) mg/dL Calculated Osmolality (280-300) Lactic Acid 1.1 (0.5-2.2) mmol/L Calcium (8.6-10.3) mg/dL Magnesium (1.6-2.6) mg/dL Troponin I < 0.03 (< 0.04) ng/mL B-Natriuretic Peptide 14 (Less than 100) pg/mL 04/05/19 Range/Units 02:26 WBC (4.3-11.1) K/mcL RBC (4.19-5.50) M/mcL Hgb (12.9-16.9) g/dL Hct (37.5-50.1) % MCV (83.0-100.0) fL MCH (28.0-33.3) pg MCHC (31.6-35.5) g/dL RDW (11.5-14.5) % Plt Count (140-400) K/mcL MPV (9.4-12.4) fL Immature Gran % (0-4) % Seg Neutrophils % % Lymphocytes % % Monocytes % % Eosinophils % % Basophils % % Neutrophils # (1.6-8.9) K/mcL Lymphocytes # (0.6-4.6) K/mcL Monocytes # (0.0-1.3) K/mcL Eosinophils # (0.0-0.6) K/mcL Basophils # (0.0-0.2) K/mcL D-Dimer (0-500) ng/mLFEU Sodium (136-145) mEq/L Potassium (3.5-5.1) mEq/L Chloride (98-107) mEq/L Carbon Dioxide (23-29) mEq/L BUN (6-20) mg/dL Creatinine (0.70-1.30) mg/dL Est GFR ( Amer) (> 60) Est GFR (Non-Af Amer) (> 60) BUN/Creatinine Ratio (6-26) Glucose (70-105) mg/dL Calculated Osmolality (280-300) Lactic Acid 1.0 (0.5-2.2) mmol/L Calcium (8.6-10.3) mg/dL Magnesium (1.6-2.6) mg/dL Troponin I (< 0.04) ng/mL B-Natriuretic Peptide (Less than 100) pg/mL
--- NOTE | 2019-04-05 03:35 | Emergency Department Note ---
Disposition Clinical Impression: Asthma with exacerbation Qualifiers: Asthma severity: moderate Asthma persistence: unspecified Qualified Code(s): J45.901 - Unspecified asthma with (acute) exacerbation Disposition: Admitted As Inpatient Condition: Fair Time of Disposition: 03:45 General Adult HPI - General Chief complaint: ED Shortness of Breath/Dyspnea Stated complaint: [place] Time Seen by Provider: 04/05/19 00:16 Source: patient Mode of arrival: private vehicle Limitations: no limitations - History of Present Illness Pain Scale: 0 - Related Data Home Medications Medication Instructions Recorded Confirmed Albuterol Sulfate [Ventolin Hfa] 2 puff IH Q4H PRN 01/21/18 04/05/19 Previous Rx's Medication Instructions Recorded Albuterol Neb [Proventil Neb] 2.5 mg IH Q4HR PRN #25 vial.neb 06/27/18 Budesonide/Formoterol 160/4.5 1 puff IH BIDR #1 hfa.aer.ad 01/23/19 [Symbicort 160/4.5] Ipratropium/Albuterol Neb [Duoneb] 3 ml IH Q6HR PRN #25 vial.neb 01/23/19 Ipratropium/Albuterol Neb [Duoneb] 3 ml IH Q6HR PRN #25 vial.neb 02/19/19 Montelukast [Singulair] 10 mg PO DAILY #14 tablet 02/19/19 Allergies Allergy/AdvReac Type Severity Reaction Status Date / Time Penicillins Allergy Hives Verified 04/05/19 00:20 Sulfa (Sulfonamide Allergy Wheezing Verified 04/05/19 00:20 Antibiotics) Constitutional: Denies: fever, chills ENT ED: Denies: ear pain, throat pain Cardiovascular: Denies: chest pain, palpitations Respiratory: Reports: wheezes. Denies: cough, hemoptysis, stridor Gastrointestinal: Denies: abdominal pain, nausea, vomiting, diarrhea Musculoskeletal: Denies: back pain, neck pain Integumentary: Denies: rash Neurological: Denies: headache Past Medical History - Past Medical History Medical history: Reports: asthma, hypertension Surgical history: Reports: other (Testicular surgery from injury) Psychiatric history: Reports: no psych history - Social History Smoking Status: Never smoker Smokeless Tobacco Status: No Alcohol use: Reports: none Drug use: Reports: none Physical Exam - General Limitations: no limitations General appearance: alert, in no apparent distress Course Vital Signs Temperature 99.8 F H 04/05/19 00:15 Pulse Rate 104 04/05/19 00:15 Respiratory Rate 24 04/05/19 00:15 Blood Pressure 137/97 04/05/19 00:15 O2 Sat by Pulse Oximetry 93 04/05/19 00:15 Temperature 99.8 F H 04/05/19 00:15 Pulse Rate 123 04/05/19 03:20 Respiratory Rate 26 04/05/19 03:20 Blood Pressure 166/94 04/05/19 03:00 O2 Sat by Pulse Oximetry 92 04/05/19 03:00 Oxygen Delivery Oxygen Delivery Room Air Medical Decision Making - Lab Data Result diagrams: 04/05/19 00:43 04/05/19 00:43 Lab Results 04/05/19 04/05/19 04/05/19 Range/Units 00:43 00:43 00:43 WBC 7.8 (4.3-11.1) K/mcL RBC 4.24 (4.19-5.50) M/mcL Hgb 11.9 L (12.9-16.9) g/dL Hct 37.4 L (37.5-50.1) % MCV 88.2 (83.0-100.0) fL MCH 28.1 (28.0-33.3) pg MCHC 31.8 (31.6-35.5) g/dL RDW 14.7 H (11.5-14.5) % Plt Count 195 (140-400) K/mcL MPV 9.5 (9.4-12.4) fL Immature Gran % 0.1 (0-4) % Seg Neutrophils % 76.1 % Lymphocytes % 14.6 % Monocytes % 5.0 % Eosinophils % 3.6 % Basophils % 0.6 % Neutrophils # 5.9 (1.6-8.9) K/mcL Lymphocytes # 1.1 (0.6-4.6) K/mcL Monocytes # 0.4 (0.0-1.3) K/mcL Eosinophils # 0.3 (0.0-0.6) K/mcL Basophils # 0.1 (0.0-0.2) K/mcL D-Dimer 357 (0-500) ng/mLFEU Sodium 138 (136-145) mEq/L Potassium 4.0 (3.5-5.1) mEq/L Chloride 102 (98-107) mEq/L Carbon Dioxide 29 (23-29) mEq/L BUN 19 (6-20) mg/dL Creatinine 1.20 (0.70-1.30) mg/dL Est GFR ( Amer) > 60 (> 60) Est GFR (Non-Af Amer) > 60 (> 60) BUN/Creatinine Ratio 16 (6-26) Glucose 99 (70-105) mg/dL Calculated Osmolality 288 (280-300) Lactic Acid (0.5-2.2) mmol/L Calcium 9.0 (8.6-10.3) mg/dL Magnesium 2.0 (1.6-2.6) mg/dL Troponin I (< 0.04) ng/mL B-Natriuretic Peptide (Less than 100) pg/mL 04/05/19 04/05/19 04/05/19 Range/Units 00:43 00:43 00:43 WBC (4.3-11.1) K/mcL RBC (4.19-5.50) M/mcL Hgb (12.9-16.9) g/dL Hct (37.5-50.1) % MCV (83.0-100.0) fL MCH (28.0-33.3) pg MCHC (31.6-35.5) g/dL RDW (11.5-14.5) % Plt Count (140-400) K/mcL MPV (9.4-12.4) fL Immature Gran % (0-4) % Seg Neutrophils % % Lymphocytes % % Monocytes % % Eosinophils % % Basophils % % Neutrophils # (1.6-8.9) K/mcL Lymphocytes # (0.6-4.6) K/mcL Monocytes # (0.0-1.3) K/mcL Eosinophils # (0.0-0.6) K/mcL Basophils # (0.0-0.2) K/mcL D-Dimer (0-500) ng/mLFEU Sodium (136-145) mEq/L Potassium (3.5-5.1) mEq/L Chloride (98-107) mEq/L Carbon Dioxide (23-29) mEq/L BUN (6-20) mg/dL Creatinine (0.70-1.30) mg/dL Est GFR ( Amer) (> 60) Est GFR (Non-Af Amer) (> 60) BUN/Creatinine Ratio (6-26) Glucose (70-105) mg/dL Calculated Osmolality (280-300) Lactic Acid 1.1 (0.5-2.2) mmol/L Calcium (8.6-10.3) mg/dL Magnesium (1.6-2.6) mg/dL Troponin I < 0.03 (< 0.04) ng/mL B-Natriuretic Peptide 14 (Less than 100) pg/mL 04/05/19 Range/Units 02:26 WBC (4.3-11.1) K/mcL RBC (4.19-5.50) M/mcL Hgb (12.9-16.9) g/dL Hct (37.5-50.1) % MCV (83.0-100.0) fL MCH (28.0-33.3) pg MCHC (31.6-35.5) g/dL RDW (11.5-14.5) % Plt Count (140-400) K/mcL MPV (9.4-12.4) fL Immature Gran % (0-4) % Seg Neutrophils % % Lymphocytes % % Monocytes % % Eosinophils % % Basophils % % Neutrophils # (1.6-8.9) K/mcL Lymphocytes # (0.6-4.6) K/mcL Monocytes # (0.0-1.3) K/mcL Eosinophils # (0.0-0.6) K/mcL Basophils # (0.0-0.2) K/mcL D-Dimer (0-500) ng/mLFEU Sodium (136-145) mEq/L Potassium (3.5-5.1) mEq/L Chloride (98-107) mEq/L Carbon Dioxide (23-29) mEq/L BUN (6-20) mg/dL Creatinine (0.70-1.30) mg/dL Est GFR ( Amer) (> 60) Est GFR (Non-Af Amer) (> 60) BUN/Creatinine Ratio (6-26) Glucose (70-105) mg/dL Calculated Osmolality (280-300) Lactic Acid 1.0 (0.5-2.2) mmol/L Calcium (8.6-10.3) mg/dL Magnesium (1.6-2.6) mg/dL Troponin I (< 0.04) ng/mL B-Natriuretic Peptide (Less than 100) pg/mL Critical Care Time Critical Care Time: Yes Total Critical Care Time: 35 Attestation: Critical care performed: Time is exclusive of separately billable procedures. Time includes: direct patient care, patient reassessment, coordination of patient care, interpretation of data (laboratory data, radiology data, and respiratory data), review of patient's medical records, medical consultation and documentation of patient care. Procedures included in critical care time: Procedures excluded from critical care time: Attestation Statement - Attestation Attestation: I examined this patient and my medical decision-making was reviewed with the Resident Physician. I agree with the documented findings, disposition and treatment plan as described except to the extent set forth below. Patient presents to the ED with a chief complaint of cough for 2 days and shortness of breath for one. History of asthma. On exam he is in no respiratory distress. Extremities wheezing on lung auscultation. Plan. Patient's had multiple nebs, steroids, mag. He is very short of breath and hypoxic. We will admit.
--- NOTE | 2019-04-05 05:03 | Internal Med History&Physical ---
<John Harris - Last Filed: 04/05/19 06:22> Date of Encounter: 04/05/19 Time of Encounter: 04:46 Internal Medicine - H&P: HPI Chief complaint: SOB Admitted From: Emergency Dept Plans for Post Hospital Care: Home History of present illness: Mr. Mtz is a 39 year old male with a PMhx of Asthma who presents to emergency room with complaint of shortness of breath. Patient states that he has been progressive short of breath 4 days. Symptoms are exacerbated with exertion however he does feel some shortness of breath at rest. He does admit to a nonproductive cough but denies any symptoms of fevers, chills, chest pain, nausea, vomiting. He has had multiple missions in the past for asthma exa cerbations between this facility as well as [facility]. He states that he was admitted to [facility] approximately 2 months ago for an asthma exacerbation which required 8 days of admission. He also states that he is getting over a pneumonia which was diagnosed as outpatient and treated with steroids and unknown antibiotic earlier this month. He states that the frequency of hospital admissions required for asthma exacerbation is increasing over the past 4 years when he was diagnosed. He previously did follow with a printing table worker in [place] however has since moved down here and has not yet found a new printing table worker. Patient does identify triggering symptoms including seasonal allergies. He works at a [employer] in [place] where she states temperatures can get very warm. In the emergency department, presenting with signs were significant for temperature 99.8, heart rate 104, respiratory rate 24, blood pressure stable and he was tolerating room air. Per report, patient continued to tolerate room air with good saturation of oxygen, however when patient ambulates he does drop down to the mid 80s. Discussed with patient, he does admit to increased dyspnea on exertion with associated lightheadedness when he walks as well. Chest x-ray shows no acute process. Laboratory results show a baseline anemia 11.9, normal BMP, including normal lactic acid, magnesium, troponin, BNP. D-dimer was also obtained which was within normal limits. EKG shows sinus tachycardia. At time of my interview, patient states that he continues to notice some wheezing and some shortness of breath on exertion. He is currently comfortable while resting in bed. Continues to deny any other symptoms. Past medical history: As above, HTN, HFpEF Past surgical history: Patient denies Social history: Never smoker, rare alcohol use, denies illicit drug use Family history: Father with emphysema and cardiac disease. in 50s due to ME, mother with extensive cardiac disease (11 stents). Past Med Surg Social Fam HX - Past Medical History Medical history: asthma, hypertension Additional medical history: testicular sx Psychiatric history: no psych history - Past Surgical History Surgical History: other (Testicular surgery from injury) Additional surgical history: testicular surgery - Social History Smoking Status: Never smoker Smokeless Tobacco Status: No Alcohol use: none Drug use: none - Family History Mother Living Status: Still Living Hx Family Cardiac Disorders: Yes (11 stents, CABG) Hx Family Respiratory Disorders: No Hx Family Cancer: No Hx Family GI Disorders: No Hx Family Endocrine Disorder: Yes (Diabetes) Hx Family Neuromuscular Disorders: No Hx Family Neurologic Disorders: No Hx Family HEENT Disorders: No Hx Family Autoimmune Disorders: No Father Living Status: Hx Family Cardiac Disorders: Yes (Cardiomegaly, stents) Hx Family Respiratory Disorders: Yes (COPD, emphysema) Hx Family Cancer: No Hx Family GI Disorders: No Hx Family Endocrine Disorder: Yes (Diabetes) Hx Family Neuromuscular Disorders: No Hx Family Neurologic Disorders: No Hx Family HEENT Disorders: No Hx Family Autoimmune Disorders: No Internal Medicine - H&P: Meds Albuterol Sulfate [Ventolin Hfa] 2 puff IH Q4H PRN 01/21/18 [History] Albuterol Neb [Proventil Neb] 2.5 mg IH Q4HR PRN #25 vial.neb 06/27/18 [Rx] Budesonide/Formoterol 160/4.5 [Symbicort 160/4.5] 1 puff IH BIDR #1 hfa.aer.ad 01/23/19 [Rx] Ipratropium/Albuterol Neb [Duoneb] 3 ml IH Q6HR PRN #25 vial.neb 01/23/19 [Rx] Ipratropium/Albuterol Neb [Duoneb] 3 ml IH Q6HR PRN #25 vial.neb 02/19/19 [Rx] Montelukast [Singulair] 10 mg PO DAILY #14 tablet 02/19/19 [Rx] Allergy/AdvReac Type Severity Reaction Status Date / Time Penicillins Allergy Hives Verified 04/05/19 00:20 Sulfa (Sulfonamide Allergy Wheezing Verified 04/05/19 00:20 Antibiotics) All Systems PM: A 10-system review of systems was performed and is negative for pertinent findings except as documented above in the HPI. Review of systems: - Constitutional: Denies fevers, chills, weight loss, generalized fatigue - EENT: Denies vision changes/blurriness, tinnitus, auditory changes, rhinorrhea, congestion, sore throat, odynaphagia - CVS: Denies chest pain, palpitations,orthopnea, edema, PND, - Pulm: Admits to shortness of breath, dyspnea on exertion, nonproductive cough. Denies sputum, - GI: Denies abdominal pain, anorexia, nausea, vomiting, diarrhea, constipation, melena - : Denies dysuria, increased frequency, urgency, hematuria, - Heme: Denies ease of bleeding or bruising - Skin: Denies rashes, ulcers, color changes, - Neuro: Denies RMAOS, paresthesias, focal deficits, ataxia - Constitutional Vitals: Temp Pulse Resp BP Pulse Ox 99.8 F H 123 26 166/94 92 04/05/19 00:15 04/05/19 03:20 04/05/19 03:20 04/05/19 03:00 04/05/19 03:00 Exam: Gen.: Vitals noted. No acute distress. AAOx3, resting comfortably in bed. Speaking in full sentences. Morbidly obese HEENT: PERRL/EOMI, oropharynx clear, Normocephalic, atraumatic, MMM Cardiac: RRR, no murmur, +S1/S2, 1+ BLE edema, left greater than right Pulmonary: Diffuse expiratory wheezes present. equal chest expansion, unlabored breathing on room air Abdomen: soft, nontender, BS noted, no guarding, no palpable HSM Skin: warm and dry, no visible lesions. MSK: ROM intact, no joint swelling noted, gait no assessed while in bed. Admits to mild tenderness with palpation of left calf Neuro: A&Ox3, moves all extremities, no focal deficits, sensation intact Psych: Appropriate mood and behavior, AOx3 Internal Med - H&P Results - Labs CBC & Chem 7: 04/05/19 00:43 04/05/19 00:43 Labs: Short CBC 04/05/19 Range/Units 00:43 WBC 7.8 (4.3-11.1) K/mcL Hgb 11.9 L (12.9-16.9) g/dL Hct 37.4 L (37.5-50.1) % Plt Count 195 (140-400) K/mcL Neutrophils # 5.9 (1.6-8.9) K/mcL BMP 04/05/19 00:43 Sodium 138 Potassium 4.0 Chloride 102 Carbon Dioxide 29 BUN 19 Creatinine 1.20 Glucose 99 Calcium 9.0 Cardiac Enzymes 04/05/19 Range/Units 00:43 Troponin I < 0.03 (< 0.04) ng/mL - Impressions ITS Impressions Chest X-Ray 04/05/19 00:24 IMPRESSION: No acute process. D/ / Holden Deutsch / Holden Deutsch Interpreting Provider: Holden Deutsch - Assessment and Plan (1) Acute respiratory failure with hypoxia Current Visit: Yes Status: Acute Assessment and plan: - Secondary to Asthma exacerbation - Unlikely to be PE given negative D-dimer, unlikely CHF given clinical and negative CXR - Diffuse wheezing appreciated on exam - Patient reports increasing frequency of hospital admission for asthma related illness - Home inhalers of singulair, albuterol, symbicort and duonebs without significant improvement - Multiple triggers including weather, seasonal allergies. - Does not follow currently with Pulm - Currently tolerating room air however patient reportedly drops to mid 80s while walking - Given duonebs, steroids, magnesium in ED - He was previously seen by [facility], however this has been since 2016 Plan - Start scheduled steroids - Albuterol and duonebs scheduled - Continue home singulair and symbicort - Consider inpatient pulm evaluation if patient's symptoms have not improved - Alternatively, patient would likely benefit from establishing with Pulm as outpatient (2) Asthma exacerbation Current Visit: Yes Status: Acute Assessment and plan: As above Qualifiers: Asthma severity: mild Asthma persistence: unspecified Qualified Code(s): J45.901 - Unspecified asthma with (acute) exacerbation (3) Morbid obesity with BMI of 50.0-59.9, adult Current Visit: Yes Status: Chronic Assessment and plan: Chronic, BMI of 60.0 Possibly related to obesity hypoventilation Patient may benefit from outpatient outpatient weight loss/gastric bypass (4) Hypertension Current Visit: Yes Status: Chronic Assessment and plan: Moderately elevated at time of presentation of 166/ Suspect this may be related to respiratory status and anxiety Takes home lisinopril, will continue once reconciled dosage Qualifiers: Hypertension type: essential hypertension Qualified Code(s): I10 - Essential (primary) hypertension (5) (HFpEF) heart failure with preserved ejection fraction Current Visit: Yes Status: Chronic Assessment and plan: Per most recent echocardiogram, patient does have moderate diastolic dysfunction with preserved ejection fraction Patient's symptoms are more consistent with a asthma exacerbation however Chest x-ray shows no signs of volume overload BNP is 14, however patient is morbidly obese Denies symptoms of orthopnea. Suspect the patient's peripheral edema is more likely related to his obesity We will continue monitor this time Qualifiers: Heart failure chronicity: chronic Qualified Code(s): I50.32 - Chronic diastolic (congestive) heart failure (6) Obesity hypoventilation syndrome Current Visit: Yes Status: Suspected Assessment and plan: Suspect secondary to body habitus and BMI of 60.0 Suspect however that primary hypoxic etiology is more likely due to asthma however Patient should follow-up with pulmonology as outpatient (7) DVT prophylaxis Current Visit: Yes Status: Acute Assessment and plan: Subcutaneous heparin - Time Spent With Patient Total time spent is greater than 50% in coordination of care (as documented) at patient's floor/unit and/or counseling patient: <Manjinder Zurita - Last Filed: 04/05/19 06:53> Date of Encounter: 04/05/19 Internal Medicine - H&P: HPI History of present illness: Mr. Mtz is a 39 year old male All Systems PM: A 10-system review of systems was performed and is negative for pertinent findings except as documented above in the HPI. - Constitutional Vitals: Temp Pulse Resp BP Pulse Ox 98.3 F 126 18 144/73 92 04/05/19 06:40 04/05/19 06:40 04/05/19 06:40 04/05/19 06:40 04/05/19 06:40 Internal Med - H&P Results - Labs CBC & Chem 7: 04/05/19 00:43 04/05/19 00:43 Labs: Short CBC 04/05/19 Range/Units 00:43 WBC 7.8 (4.3-11.1) K/mcL Hgb 11.9 L (12.9-16.9) g/dL Hct 37.4 L (37.5-50.1) % Plt Count 195 (140-400) K/mcL Neutrophils # 5.9 (1.6-8.9) K/mcL BMP 04/05/19 00:43 Sodium 138 Potassium 4.0 Chloride 102 Carbon Dioxide 29 BUN 19 Creatinine 1.20 Glucose 99 Calcium 9.0 Cardiac Enzymes 04/05/19 Range/Units 00:43 Troponin I < 0.03 (< 0.04) ng/mL - Impressions ITS Impressions Chest X-Ray 04/05/19 00:24 IMPRESSION: No acute process. D/ / Holden Deutsch / Holden Deutsch Interpreting Provider: Holden Deutsch - Time Spent With Patient Total time spent is greater than 50% in coordination of care (as documented) at patient's floor/unit and/or counseling patient: - Attending Attestation I saw and evaluated the patient. I reviewed the residents note, performed my ow n physical examination and agree with findings and plan as documented in the residents note. Patient seen and examined on 04/05/19. Patient presented to the ER with shortness of breath, particularly with exertion. Likely secondary to asthma exacerbation, patient has had multiple admissions for this this year already. Patient morbidly obese as well. Does not have oxygen at home. Feeling better with breathing treatments. Continue to monitor. Patient also has left lower extremity swelling, and irr egular musculature at his calf. Consider possible muscle abnormality, potentially tendon rupture. Patient states that he injured his leg about 1 year ago, and he does have pain with movement. Does however have full range of motion of the foot and ankle.
[2019-04-05] MEDS ORDERED: Naloxone 0.4 MG/ML INJ IVP PRN (05:10)
[2019-04-05] MEDS ORDERED: Acetaminophen 325 MG TABLET PO PRN (05:10)
[2019-04-05] MEDS ORDERED: Albuterol 2.5 MG/3 ML NEBULIZER IH PRN (05:11)
[2019-04-05] MEDS: MethylPREDNISolone 40 MG/ML VIAL IVP SCH ×3 (05:48→16:57)
[2019-04-05] MEDS: *HR* Heparin 5,000 UNIT/ML VIAL SQ SCH ×2 (05:48→15:07)
[2019-04-05] MEDS: Budesonide/Formoterol 160/4.5 1 PUFF INH IH SCH ×2 (07:46→22:08)
[2019-04-05] MEDS ORDERED: Ipratropium/Albuterol Neb 3 ML IH SCH (08:00)
[2019-04-05] MEDS ORDERED: Levalbuterol Neb 1.25 MG/3 ML IH PRN (08:13)
--- NOTE | 2019-04-05 09:25 | Event Note ---
Date of Encounter: 04/05/19 Time of Encounter: 09:23 Mr. Mtz is a 39 year old male with a PMhx of Asthma who presents to emergency room with complaint of shortness of breath. Patient states that he has been progressive short of breath 4 days. Symptoms are exacerbated with exertion however he does feel some shortness of breath at rest. He does admit to a nonproductive cough but denies any symptoms of fevers, chills, chest pain, nausea, vomiting. He has had multiple admissions in the past for asthma exacerbations between this facility as well as [facility]. Diffuse wheezing and rhonchi were appreciated on physical exam. Labs were unremarkable. Chest x-ray has no acute infiltrate. However, telemetry showed frequent episodic SVT with heart rate between 130-140, each of SVT was preceded by short runs of PVCs. Troponin was negative. Electrolytes were normal. DuoNeb was changed to Xopenex, low dose of metoprolol was ordered. Cardiology was consulted, appreciate help.
[2019-04-05] MEDS: Levalbuterol Neb 1.25 MG/3 ML IH SCH ×3 (11:01→22:08)
--- NOTE | 2019-04-05 13:18 | Cardiology Consult Note ---
Date of Encounter: 04/05/19 Time of Encounter: 13:16 Assessment and Plan (1) Sinus tachycardia Current Visit: Yes Status: Acute Per cardiology: -Sinus tachycardia noted in the setting of asthma exacerbation with active wheezing. -On nebulizers and steroids. -Anticipate HR will improve as clinical condition improves. (2) Non-sustained ventricular tachycardia Current Visit: Yes Status: Acute Per cardiology: -NS VT noted, longest 5 beats. -Started on BB per primary service. -TTE 01/2018 with LVEF preserved, moderate diastolic dysfunction, no wall motion abnormalities noted. -K, MG within normal limits, -Continue BB. -Will repeat TTE, if no significant finding, anticipate cardiology sign off. Discussion w patient/family: The assessment and plan as outlined above was discussed with the patient who expressed understanding and agreement. All questions were answered. Thank you for involving us in the care of your patient. Please call with any questions. Discussed and reviewed with . History of Present Illness Consult date: 04/05/19 Requesting physician: Steve Byrd Consult reason: NS VT Chief complaint: shortness of breath History of present illness: Mr. Mtz is a 39 year old male with a relevant past medical history of asthma with recurrent exacerbations, morbid obesity, who presented to [facility] with complaints of shortness of breath. States it felt like his typical asthma exac erbations. Patient denies chest pain. Reports after his albuterol, he feels his heart racing. Denies chest pain. Reports shortness of breath is improved. Past Med Surg Social Fam HX - Past Medical History Attestation: Yes The following information was validated with the patient. Source: patient, old records reviewed Medical history: asthma, hypertension Additional medical history: testicular sx Psychiatric history: no psych history - Past Surgical History Surgical History: other (Testicular surgery from injury) Additional surgical history: testicular surgery - Social History Smoking Status: Never smoker Smokeless Tobacco Status: No Alcohol use: none Drug use: none - Family History Mother Living Status: Still Living Hx Family Cardiac Disorders: Yes (11 stents, CABG) Hx Family Respiratory Disorders: No Hx Family Cancer: No Hx Family GI Disorders: No Hx Family Endocrine Disorder: Yes (Diabetes) Hx Family Neuromuscular Disorders: No Hx Family Neurologic Disorders: No Hx Family HEENT Disorders: No Hx Family Autoimmune Disorders: No Father Living Status: Hx Family Cardiac Disorders: Yes (Cardiomegaly, stents) Hx Family Respiratory Disorders: Yes (COPD, emphysema) Hx Family Cancer: No Hx Family GI Disorders: No Hx Family Endocrine Disorder: Yes (Diabetes) Hx Family Neuromuscular Disorders: No Hx Family Neurologic Disorders: No Hx Family HEENT Disorders: No Hx Family Autoimmune Disorders: No Medications and Allergies Albuterol Sulfate [Ventolin Hfa] 2 puff IH Q4H PRN 01/21/18 [History] Albuterol Neb [Proventil Neb] 2.5 mg IH Q4HR PRN #25 vial.neb 06/27/18 [Rx] Budesonide/Formoterol 160/4.5 [Symbicort 160/4.5] 1 puff IH BIDR #1 hfa.aer.ad 01/23/19 [Rx] Ipratropium/Albuterol Neb [Duoneb] 3 ml IH Q6HR PRN #25 vial.neb 01/23/19 [Rx] Ipratropium/Albuterol Neb [Duoneb] 3 ml IH Q6HR PRN #25 vial.neb 02/19/19 [Rx] Montelukast [Singulair] 10 mg PO DAILY #14 tablet 02/19/19 [Rx] Allergy/AdvReac Type Severity Reaction Status Date / Time Penicillins Allergy Hives Verified 04/05/19 00:20 Sulfa (Sulfonamide Allergy Wheezing Verified 04/05/19 00:20 Antibiotics) All Systems Review: The remainder of the systems were reviewed and are negative - Cardiovascular Cardiovascular: as per HPI, dyspnea at rest, dyspnea on exertion Physical Examination Vital Signs, Last 4 Hours Pulse Resp BP Pulse Ox 04/05/19 11:01 18 95 04/05/19 10:00 121 16 132/73 92 General: Conversant, No Apparent Distress HEENT: Atraumatic, Normocephaly, Mucus Membranes Moist Neck: No JVD, Normal carotid pulses Cardiac: Reg Rate and Rhythm, Normal S1 and S2, No Murmur Lungs: Other (Inspiratory wheezes noted throughout. ) Neuro: Alert and responsive, No focal deficits noted Abdomen: Soft, Non-Tender Skin: No rashes noted on visualized skin Musculoskeletal: No Chest Wall Tenderness Extremities: No Clubbing, No Cyanosis, No Edema, Normal Pulses Results 04/05/19 00:43 04/05/19 00:43 Lab Results Impressions Chest X-Ray 04/05/19 00:24 IMPRESSION: No acute process. D/ / Holden Deutsch / Holden Deutsch Interpreting Provider: Holden Deutsch Active Medications Acetaminophen (Tylenol) 650 mg PO Q6H PRN PRN Reason: Mild Pain/Fever Stop: 10/05/19 05:11 Budesonide/Formoterol Fumarate (Symbicort) 1 puff IH BIDR [facility]; Protocol Stop: 10/05/19 10:01 Last Admin: 04/05/19 07:46 Dose: 1 puff Documented by: Heparin Sodium (Porcine) (Heparin) 5,000 unit SQ Q8HCO [facility] Stop: 10/05/19 06:01 Last Admin: 04/05/19 05:48 Dose: 5,000 unit Documented by: Levalbuterol HCl (Xopenex) 1.25 mg IH [id number] [facility] Stop: 10/05/19 10:01 Last Admin: 04/05/19 11:01 Dose: 1.25 mg Documented by: Levalbuterol HCl (Xopenex) 1.25 mg IH Q4H PRN PRN Reason: Shortness Of Breath Stop: 10/05/19 08:14 Methylprednisolone (Solu-Medrol) 40 mg IVP Q6HR [facility] Stop: 10/05/19 06:01 Last Admin: 04/05/19 11:50 Dose: 40 mg Documented by: Metoprolol Tartrate (Lopressor) 25 mg PO Q6HR [facility] Stop: 10/05/19 08:46 Last Admin: 04/05/19 11:50 Dose: 25 mg Documented by: Montelukast Sodium (Singulair) 10 mg PO DAILY [facility] Stop: 10/05/19 09:01 Last Admin: 04/05/19 08:46 Dose: 10 mg Documented by: Naloxone HCl (Narcan) 0.4 mg IVP Q2MPRN PRN PRN Reason: SEE COMMENTS Stop: 10/05/19 05:11 Laboratory Tests 04/05/19 04/05/19 04/05/19 00:43 00:43 00:43 Hgb 11.9 L Potassium 4.0 Magnesium 2.0 Troponin I < 0.03 - Imaging and Cardiology Chest Xray: report reviewed Echo: pending, report reviewed - EKG Interpretation EKG results cardiology: personally reviewed (ECG with ST, HR 106.), other (Telemetry reviewed with average HR previous 12 hours noted to be 109, ST. Non- sustained VT noted, longest 5 beats.) Consult Discharge Plan - Plan Referrals: NONE,PCP [Primary Care Provider] -
[2019-04-06] MEDS: MethylPREDNISolone 40 MG/ML VIAL IVP SCH ×2 (00:03→05:23)
[2019-04-06] MEDS: *HR* Heparin 5,000 UNIT/ML VIAL SQ SCH ×4 (00:03→20:35)
[2019-04-06] MEDS: Levalbuterol Neb 1.25 MG/3 ML IH SCH ×4 (03:31→22:02)
[2019-04-06 04:10] LABS: Basophils % 0.1 %; Hematocrit 38.3 % (37.5-50.1); Immature Granulocytes % 0.6 % (0-4); Lymphocytes # 0.6 K/mcL (0.6-4.6); Lymphocytes % 5.2 %; Mean Corpuscular HGB Conc 31.3 g/dL (31.6-35.5); Mean Corpuscular Hemoglobin 27.8 pg (28.0-33.3); Mean Corpuscular Volume 88.9 fL (83.0-100.0); Mean Platelet Volume 9.7 fL (9.4-12.4); Monocytes # 0.1 K/mcL (0.0-1.3); Neutrophils # 10.5 K/mcL (1.6-8.9); Platelet Count 250 K/mcL (140-400); Red Blood Count 4.31 M/mcL (4.19-5.50); Red Cell Distribution Width 14.6 % (11.5-14.5); Segmented Neutrophils % 93.1 %; White Blood Count 11.2 K/mcL (4.3-11.1)
[2019-04-06 04:24] LABS: BUN/Creatinine Ratio 18 (6-26); Blood Urea Nitrogen 19 mg/dL (6-20); Calcium 8.9 mg/dL (8.6-10.3); Carbon Dioxide 24 mEq/L (23-29); Chloride 103 mEq/L (98-107); Glucose 240 mg/dL (70-105); Magnesium 2.3 mg/dL (1.6-2.6); Osmolality,Calculated 292 (280-300); Potassium 4.3 mEq/L (3.5-5.1); Sodium 136 mEq/L (136-145); eGFR For African Americans > 60 (> 60); eGFR For Non-African Americans > 60 (> 60)
[2019-04-06] MEDS ORDERED: Perflutren Lipid Microsphere 1.3 ML in 0.9 % Sodium Chloride 8.7 ML IVP ONE (09:04)
--- NOTE | 2019-04-06 09:35 | Internal Med Progress Note ---
Hospitalist Progress Note - Encounter Date of Encounter: 04/06/19 Time of Encounter: 09:32 - Subjective Interval History: Mr. Mtz is a 39 year old male with a PMhx of Asthma who presents to emergency room with complaint of shortness of breath. Patient states that he has been progressive short of breath 4 days. Symptoms are exacerbated with exertion however he does feel some shortness of breath at rest. He does admit to a nonproductive cough but denies any symptoms of fevers, chills, chest pain, nausea, vomiting. He has had multiple admissions in the past for asthma exacerbations between this facility as well as [facility]. Patient seen and examined in the room. His shortness of breath and palpitation are improving but stated he has not reached baseline yet. Overnight, he has no fever, chills, or night sweats. - Exam Vitals: Temp Pulse Resp BP Pulse Ox 97.9 F 74 18 134/81 95 04/06/19 07:44 04/06/19 07:44 04/06/19 07:44 04/06/19 07:44 04/06/19 07:44 Exam: Gen.: Vitals noted. No acute distress. AAOx3, resting comfortably in bed. Speaking in full sentences. Morbidly obese HEENT: PERRL/EOMI, oropharynx clear, Normocephalic, atraumatic, MMM Cardiac: RRR, no murmur, +S1/S2, 1+ BLE edema, left greater than right Pulmonary: Diffuse expiratory wheezes present. equal chest expansion, unlabored breathing on room air Abdomen: soft, nontender, BS noted, no guarding, no palpable HSM Skin: warm and dry, no visible lesions. MSK: ROM intact, no joint swelling noted, gait no assessed while in bed. Admits to mild tenderness with palpation of left calf Neuro: A&Ox3, moves all extremities, no focal deficits, sensation intact Psych: Appropriate mood and behavior, AOx3 - Assessment and Plan (1) Asthma exacerbation Current Visit: Yes Status: Acute Assessment and Plan: Shortness of breath and palpitation are improving. Satisfactory oxygenation maintained when patient on room air. Continue bronchodilators with Xopenex and a home med. Downgraded IV steroids to oral prednisone. (2) Palpitation Current Visit: Yes Status: Acute Assessment and Plan: Telemetry tracing was carefully scrutinized, he has paroxysmal tachycardia, likely SVT versus sinus tachycardia. He was placed on short acting metoprolol. Heart rate was controlled in the last 24 hours and patient currently on sinus rhythm. Cardiology following, appreciate help. Pending echocardiogram. (3) Acute respiratory failure with hypoxia Current Visit: Yes Status: Acute Assessment and Plan: Same as above. (4) Morbid obesity with BMI of 50.0-59.9, adult Current Visit: Yes Status: Chronic Assessment and Plan: Weight reduction discussed with patient. (5) BHARATI (obstructive sleep apnea) Current Visit: No Status: Suspected Assessment and Plan: BiPAP as needed. (6) Hypertension Current Visit: No Status: Chronic Assessment and Plan: BP controlled. (7) DVT prophylaxis Current Visit: Yes Status: Acute Assessment and Plan: plan subcutaneous. - Time Spent with Patient Total time spent is greater than 50% in coordination of care (as documented) at patient's floor/unit and/or counseling patient: Greater than 35 minutes Plan of Care Discussed with: patient Internal Medicine: Result - Labs CBC & Chem 7: 04/06/19 03:19 04/06/19 03:19 Labs: Short CBC 04/06/19 Range/Units 03:19 WBC 11.2 H (4.3-11.1) K/mcL Hgb 12.0 L (12.9-16.9) g/dL Hct 38.3 (37.5-50.1) % Plt Count 250 (140-400) K/mcL Neutrophils # 10.5 H (1.6-8.9) K/mcL BMP 04/06/19 03:19 Sodium 136 Potassium 4.3 Chloride 103 Carbon Dioxide 24 BUN 19 Creatinine 1.06 Glucose 240 H Calcium 8.9 - ABG Interpretation ABG results: PT/INR, D-dimer D-Dimer 357 ng/mLFEU (0-500) 04/05/19 00:43 Consult Discharge Plan - Plan Referrals: NONE,PCP [Primary Care Provider] - (1) Asthma exacerbation Qualifiers: Asthma severity: mild Asthma persistence: unspecified Qualified Code(s): J45.901 - Unspecified asthma with (acute) exacerbation (6) Hypertension Qualifiers: Hypertension type: essential hypertension Qualified Code(s): I10 - Essential (primary) hypertension
[2019-04-06] MEDS: Budesonide/Formoterol 160/4.5 1 PUFF INH IH SCH ×2 (10:49→22:02)
--- NOTE | 2019-04-06 10:54 | Event Note ---
Date of Encounter: 04/06/19 Time of Encounter: 10:53 - Cardiology Event Note No recurrence of NS VT noted on telemetry with addition of BB. TTE pending. IF no significant derrangements, no further cardiology recs inpatient.
--- NOTE | 2019-04-06 11:41 | Electrocardiograph Report ---
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
--- NOTE | 2019-04-06 11:43 | Electrocardiograph Report ---
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
[2019-04-07] MEDS: Levalbuterol Neb 1.25 MG/3 ML IH SCH ×2 (03:58→09:38)
[2019-04-07] MEDS: *HR* Heparin 5,000 UNIT/ML VIAL SQ SCH (05:17)
[2019-04-07 07:22] VITALS: BP 109/71
[2019-04-07 07:27] LABS: Hematocrit 36.5 % (37.5-50.1); Hemoglobin 11.3 g/dL (12.9-16.9); Mean Corpuscular Hemoglobin 27.7 pg (28.0-33.3); Mean Corpuscular Volume 89.5 fL (83.0-100.0); Mean Platelet Volume 9.7 fL (9.4-12.4); Platelet Count 218 K/mcL (140-400); Red Blood Count 4.08 M/mcL (4.19-5.50); White Blood Count 10.7 K/mcL (4.3-11.1)
[2019-04-07 07:44] LABS: BUN/Creatinine Ratio 23 (6-26); Blood Urea Nitrogen 25 mg/dL (6-20); Calcium 8.8 mg/dL (8.6-10.3); Carbon Dioxide 27 mEq/L (23-29); Chloride 107 mEq/L (98-107); Glucose 145 mg/dL (70-105); Osmolality,Calculated 289 (280-300); Potassium 3.7 mEq/L (3.5-5.1); Sodium 136 mEq/L (136-145); eGFR For African Americans > 60 (> 60); eGFR For Non-African Americans > 60 (> 60)
--- NOTE | 2019-04-07 08:29 | Discharge Summary ---
- NOTES TO OUTPATIENT PROVIDER Notes to Outpatient Provider: f/u with PCP within 2 weeks. Cardiology f/u within 2 weeks. Date of Encounter: 04/07/19 Time of Encounter: 08:26 - Discharge Diagnosis (1) Asthma exacerbation Priority: Primary Status: Acute Assessment and Plan: Shortness of breath and palpitation are improving. Satisfactory oxygenation maintained when patient on room air. Continue bronchodilators with Xopenex and a home med. Downgraded IV steroids to oral prednisone. Qualifiers: Asthma severity: mild Asthma persistence: unspecified Qualified Code(s): J45.901 - Unspecified asthma with (acute) exacerbation (2) Palpitation Priority: Primary Status: Acute Assessment and Plan: Telemetry tracing was carefully scrutinized, he has paroxysmal tachycardia, likely SVT versus sinus tachycardia. He was placed on short acting metoprolol. Heart rate was controlled in the last 24 hours and patient currently on sinus rhythm. Cardiology following, appreciate help. Pending echocardiogram. (3) Acute respiratory failure with hypoxia Priority: Primary Status: Acute Assessment and Plan: Same as above. (4) Morbid obesity with BMI of 50.0-59.9, adult Priority: Secondary Status: Chronic (5) BHARATI (obstructive sleep apnea) Priority: Secondary Status: Suspected (6) Hypertension Priority: Secondary Status: Chronic Qualifiers: Hypertension type: essential hypertension Qualified Code(s): I10 - Essential (primary) hypertension (7) DVT prophylaxis Priority: Primary Status: Acute Hospital course: Mr. Mtz is a 39 year old male with a PMhx of Asthma who presents to emergency room with complaint of shortness of breath. Patient states that he has been progressive short of breath 4 days. Symptoms are exacerbated with exertion however he does feel some shortness of breath at rest. He does admit to a nonproductive cough but denies any symptoms of fevers, chills, chest pain, nausea, vomiting. He has had multiple missions in the past for asthma exacerbations between this facility as well as [facility]. He states that he was admitted to [facility] approximately 2 months ago for an asthma exacerbation which required 8 days of admission. He also states that he is getting over a pneumonia which was diagnosed as outpatient and treated with steroids and unknown antibiotic earlier this month. He states that the frequency of hospital admissions required for asthma exacerbation is increasing over the past 4 years when he was diagnosed. He previously did follow with a banana room cutter in [place] however has since moved down here and has not yet found a new banana room cutter. Patient does identify triggering symptoms including seasonal allergies. He works at a [employer] in [place] where she states temperatures can get very warm. In the emergency department, presenting with signs were significant for temperature 99.8, heart rate 104, respiratory rate 24, blood pressure stable and he was tolerating room air. Per report, patient continued to tolerate room air with good saturation of oxygen, however when patient ambulates he does drop down to the mid 80s. Discussed with patient, he does admit to increased dyspnea on exertion with associated lightheadedness when he walks as well. Chest x-ray shows no acute process. Laboratory results show a baseline anemia 11.9, normal BMP, including normal lactic acid, magnesium, troponin, BNP. D-dimer was also obtained which was within normal limits. EKG shows sinus tachycardia. He was started on IV steroids and bronchodilators. Recurrent tachycardia was noted on the vehicle monitor technician, by carefully reviewing the chest pain, frequent episodic SVT with heart rate around 120-140 was noted, patient was started on metoprolol. Cardiology was consulted. His symptoms rapidly improved with treatment, by the second hospital day, his respiratory distress has completely resolved. Patient is discharged home today, short course of burst prednisone was prescribed, metoprolol was also continued, he will follow-up with PCP and cardiology as scheduled. Discharge discussed with: patient Time spent discussing smoking cessation with patient: more than 10 minutes - Time Spent with Patient Total time spent providing and/or coordinating discharge services: Time spent: Greater than 30 minutes - Discharge Medications Prescriptions: New PredniSONE [Deltasone] 40 mg PO DAILY #4 tablet Metoprolol [Lopressor] 50 mg PO BID #60 tablet Continued Albuterol Sulfate [Ventolin Hfa] 2 puff IH Q4H PRN PRN Reason: Shortness Of Breath Lisinopril [Zestril] 10 mg PO BID Budesonide/Formoterol 160/4.5 [Symbicort 160/4.5] 1 puff IH BIDR #1 hfa.aer.ad Montelukast [Singulair] 10 mg PO DAILY #14 tablet Ipratropium/Albuterol Neb [Duoneb] 3 ml IH Q6HR PRN #25 vial.neb PRN Reason: Dyspnea Home Medications: Albuterol Sulfate [Ventolin Hfa] 2 puff IH Q4H PRN 01/21/18 [History] Budesonide/Formoterol 160/4.5 [Symbicort 160/4.5] 1 puff IH BIDR #1 hfa.aer.ad 01/23/19 [Rx] Ipratropium/Albuterol Neb [Duoneb] 3 ml IH Q6HR PRN #25 vial.neb 02/19/19 [Rx] Montelukast [Singulair] 10 mg PO DAILY #14 tablet 02/19/19 [Rx] Lisinopril [Zestril] 10 mg PO BID 04/06/19 [History] Metoprolol [Lopressor] 50 mg PO BID #60 tablet 04/07/19 [Rx] PredniSONE [Deltasone] 40 mg PO DAILY #4 tablet 04/07/19 [Rx] Allergies/Adverse Reactions: Allergy/AdvReac Type Severity Reaction Status Date / Time Penicillins Allergy Hives Verified 04/05/19 00:20 Sulfa (Sulfonamide Allergy Wheezing Verified 04/05/19 00:20 Antibiotics) Date of admission: 04/05/19 03:52 Primary care physician: PCP NONE Consults: 04/05/19 08:18 Consult to Cardiology [CONS] Routine Comment: Consulting Provider: Cardiology [place] Reason for Consult: frequent episodic SVT and non-sustained VT Call Completed: Yes Anticipated date of discharge: 04/07/19 - Constitutional Vitals: Temp Pulse Resp BP Pulse Ox 97.6 F 73 16 109/71 97 04/07/19 07:21 04/07/19 07:21 04/07/19 07:21 04/07/19 07:21 04/07/19 07:21 General appearance: Present: A&O X 3 Exam: Gen.: Vitals noted. No acute distress. AAOx3, resting comfortably in bed. Speaking in full sentences. Morbidly obese HEENT: PERRL/EOMI, oropharynx clear, Normocephalic, atraumatic, MMM Cardiac: RRR, no murmur, +S1/S2, 1+ BLE edema, left greater than right Pulmonary: Diffuse expiratory wheezes present. equal chest expansion, unlabored breathing on room air Abdomen: soft, nontender, BS noted, no guarding, no palpable HSM Skin: warm and dry, no visible lesions. MSK: ROM intact, no joint swelling noted, gait no assessed while in bed. Admits to mild tenderness with palpation of left calf Neuro: A&Ox3, moves all extremities, no focal deficits, sensation intact Psych: Appropriate mood and behavior, AOx3 - Patient Status Disposition: Home, Self-Care Condition: Fair Functional capacity at discharge: independent ambulation Overall status at discharge: patient is progressing back to baseline - Discharge Instructions Follow Up With: NONE,PCP [Primary Care Provider] - - Diet and Activity Activity: increase activity as tolerated Diet: low fat, low cholesterol, low salt diet
[2019-04-07] MEDS ORDERED: predniSONE 20 MG TABLET PO SCH (09:00)
[2019-04-07] MEDS: Budesonide/Formoterol 160/4.5 1 PUFF INH IH SCH (09:38)
== END 2019-04-07 11:06 | disposition home or self-care (01) ==
LOC: 3BNU 00:09 → EMEROOARM 00:09 → 3BNU 04:36
PROVIDERS: ADMIT Pediatrics; ATTEND Pediatrics